=== PATIENT | male | born 1970 | race Caucasian/White ===

== ENCOUNTER 2025-07-01 14:56 | Inpatient (IN) | payer SELFPAY ==
[2025-07-01] VITALS (42 sets, daily range): BP systolic 85–125; BP diastolic 52–89; PULSE 108–149; RESP 16–33; TEMP 36.7; O2SAT 83–100; BMI 21.3
--- NOTE | 2025-07-01 14:57 | XR_ITS ---
WS: [id number] XR chest 1V portable [id number] REASON FOR EXAM: Chest pain FINDINGS: Mild tortuosity of the aortic arch and thoracic aorta. Normal heart size. Calcified granulomatous disease with calcified lymph nodes in both hilar regions. There are chronic appearing interstitial opacities in both lower lung johnson. There is paraseptal emphysema in both lung apices. Probable central lobar emphysema in the remainder of the lungs. Mild flattening of the hemidiaphragms. No definite acute pulmonary parenchymal or pleural abnormality. Mild to moderate degenerative spondylosis in the mid and lower thoracic spine. XR/XR chest 1V portable [id number] IMPRESSION: Obstructive lung disease/emphysema. No definite acute chest abnormality.
--- NOTE | 2025-07-01 14:57 | ECG_ITS ---
[employer] Test Date: 2025-07-01 Pat Name: All Rae Department: Room: Gender: Male Icu Specialist: : 1970 Requested By: Liz Roberts Order Number: [id number] Christensen MD: Mahamed Beltran M.D. Measurements Intervals [place] Rate: 110 P: 0 MI: 0 QRS: 61 QRSD: 98 T: 244 QT: 355 QTc: 482 Interpretive Statements ATRIAL FIBRILLATION WITH RAPID VENTRICULAR RESPONSE INDETERMINATE AXIS INCOMPLETE RIGHT BUNDLE BRANCH BLOCK [90+ ms QRS DURATION, TERMINAL R IN V1/V2, 40+ ms S IN I/aVL/V4/V5/V6] ST DEVIATION AND MODERATE T-WAVE ABNORMALITY, CONSIDER LATERAL ISCHEMIA [-0.1+ mV T-WAVE IN I/aVL/V5/V6] ST DEVIATION AND MODERATE T-WAVE ABNORMALITY, CONSIDER INFERIOR ISCHEMIA [-0.1+ mV T-WAVE IN II/aVF] No previous ECG available for comparison Electronically Signed On 07-02-2025 16:54:03 CDT by Mahamed Beltran M.D. [id number]
[2025-07-01 15:15] LABS: Hematocrit 41.2 % (37-53); Hemoglobin 14.30 g/dL (11.27-16.99); Mean Corpuscular HGB Conc 34.7 g/dL (30-55); Mean Corpuscular Hemoglobin 30.2 pg (27-33); Mean Corpuscular Volume 87.1 fl (82-101); Nucleated Red Blood Cells % 0 %; Platelet Count 253 10^3/cmm (157-399); Red Blood Count 4.73 10^6/uL (3.85-5.65); White Blood Count 13.12 10^3/uL (3.29-11.43)
[2025-07-01 15:34] LABS: Lactic Sepsis W/Reflex 3.3 mmol/L (0.5-2.2)
[2025-07-01 15:38] LABS: Troponin(5th) Baseline 54 ng/L (0-15)
[2025-07-01] MEDS: amiodarone 150 MG/100 ML PREMIX 400 MG IV (15:40)
[2025-07-01 15:45] LABS: Alanine Aminotransferase 43 U/L (0-41); Albumin Level 3.9 g/dL (3.5-5.2); Alkaline Phosphatase 114 U/L (40-130); Anion Gap 20.7 (5-19); Aspartate Amino Transferase 46 U/L (0-40); Blood Urea Nitrogen 39 mg/dL (6-20); Calcium 8.9 mg/dL (8.5-10.5); Carbon Dioxide 25 mmol/L (22-29); Chloride 97 mmol/L (98-107); Creatinine Clr Calc Pharmacy 65.4106; Globulin 3.4 g/dL (1.3-4.6); Glucose 138 mg/dL (65-115); Magnesium 2.0 mg/dL (1.7-2.3); Osmolality Calculated 296 mOsm/kg (285-295); Potassium 5.7 mmol/L (3.5-5.1); Sodium 137 mmol/L (136-145); Thyroid Stimulating Hormone 2.65 uIU/mL (0.27-4.20); Total Protein 7.3 g/dL (6.6-8.7)
--- NOTE | 2025-07-01 16:05 | PC.PHAR ---
Pt states he takes no prescription medications but has a short list of supplements along with asa 81mg and mucinex
[2025-07-01 16:07] LABS: NT Pro B Type Natriuretic Pept 37206 pg/mL (0-125)
--- NOTE | 2025-07-01 16:11 | W.ED.CHESTPA ---
HPI - Chest Pain General: Chief Complaint: Chest Pain Stated Complaint: Afib RVR Chest Pain, SOB Time Seen by Provider: 07/01/25 14:56 History of Present Illness: 55-year-old male with a history of tobacco dependence and no known medical problems who presents to the emergency room by ambulance from clinic with tachycardia. He says he has not been to see a doctor in over 35 years. He gone in because he been feeling weak and tired. He been having some substernal chest discomfort. He felt short of breath. Upon arrival at clinic he was found to be in A-fib with RVR with a rate in the 170s to 180s. He was given multiple doses of Cardizem on the way to the emergency room and heart rate was down into the 140s. However pressure has been a bit soft. No known fevers. No abdominal pain. No flank pain. No nausea or vomiting. Related Data Home Medications ?Medication ?Instructions ?Recorded ?Confirmed aspirin 81 mg tablet,delayed 81 mg PO DAILY 07/01/25 07/01/25 release cyanocobalamin (vitamin B-12) 1,000 mcg PO DAILY 07/01/25 07/01/25 1,000 mcg tablet (Vitamin B-12) elderberry fruit 350 mg capsule 350 mg PO DAILY 07/01/25 07/01/25 guaifenesin 600 mg tablet, 600 mg PO DAILY 07/01/25 07/01/25 extended release 12 hr (Mucinex) magnesium 250 mg tablet 250 mg PO DAILY 07/01/25 07/01/25 multivitamin 1 tab PO DAILY 07/01/25 07/01/25 sour ag extract 1,000 mg 1,000 mg PO DAILY 07/01/25 07/01/25 capsule (Tart Ag Extract) turmeric root extract 500 mg 500 mg PO DAILY 07/01/25 07/01/25 capsule Allergies Allergy/AdvReac Type Severity Reaction Status Date / Time Penicillins Allergy ALGY-Hives Verified 07/01/25 15:11 Review of Systems Narrative: Constitutional symptoms: Negative except as documented in HPI. Skin symptoms: Negative except as documented in HPI. Eye symptoms: Negative except as documented in HPI. ENMT symptoms: Negative except as documented in HPI. Respiratory symptoms: Negative except as documented in HPI. Cardiovascular symptoms: Negative except as documented in HPI. Gastrointestinal symptoms: Negative except as documented in HPI. Genitourinary symptoms: Negative except as documented in HPI. Musculoskeletal symptoms: Negative except as documented in HPI. Neurologic symptoms: Negative except as documented in HPI. Psychiatric symptoms: Negative except as documented in HPI. Endocrine symptoms: Negative except as documented in HPI. PFSH ED PFSH: Surgical History (Updated 07/01/25 @ 17:36 by Dar Lynne MD) No pertinent past surgical history Social History (Updated 07/01/25 @ 17:36 by Dar Lynne MD) Smoking and tobacco/nicotine status: current every day tobacco/nicotine user Alcohol intake: never Substance/Drug Use: never Physical Exam Narrative: EXAM NARRATIVE: General: Alert, no acute distress. Skin: Warm, dry. Head: Normocephalic, atraumatic. Neck: Supple, trachea midline. Eye: Extraocular movements are intact. Ears, nose, mouth and throat: mucosa moist. Cardiovascular: Tachycardic, Normal peripheral perfusion. Respiratory: Lungs are clear to auscultation, respirations are non-labored, breath sounds are equal, Symmetrical chest wall expansion. Gastrointestinal: Soft, Nontender, Non distended Musculoskeletal: Normal ROM, no deformity. Neurological: Alert and oriented, No focal neurological deficit observed. Psychiatric: Cooperative, appropriate mood & affect. Course Vital Signs: Vital signs: Vital Signs Temperature 98.1 F 07/01/25 14:57 Pulse Rate 108 H 07/01/25 14:57 Respiratory Rate 16 07/01/25 14:57 Blood Pressure 98/64 07/01/25 14:57 Pulse Oximetry 92 07/01/25 14:57 Oxygen Delivery Me thod Room Air 07/01/25 14:57 MDM - Chest Pain Medical Decision Making Differential diagnosis for patient with chest pain includes but is not limited to and based on the above HPI, review of systems and physical exam: Pneumonia. unstable angina. angina. Acute coronary syndrome / AR. Pulmonary embolism. Costochondritis / musculoskeletal. Pleurisy. Pericarditis. Esophageal spasm. Pancreatis. Cholecystitis. Orders placed to evaluate differential diagnosis based on the above differential, HPI and physical exam EKG: Time 1455. Rate 110. Atrial fibrillation with rapid ventricular response, nonspecific ST changes, no ectopy, This was reviewed and interpreted by myself the ER physician at 1458 Repeat EKG: Time 1818. Rate 121. Atrial fibrillation with rapid ventricular response, nonspecific ST changes. No ectopy, This was reviewed and interpreted by myself the ER physician at 1622. Rate has increased some Chest x-ray: Emphysematous changes but no acute process. No infiltrate. No pneumothorax. This was reviewed and interpreted by myself the emergency room physician. I also reviewed the radiology report. Lab Review: Laboratory results were reviewed and interpreted by myself the emergency room physician. Mild leukocytosis. No anemia. Renal failure with a BUN/creatinine of 39 and 1.4. Potassium is mildly elevated at 5.7. Troponin is mildly elevated but does not change on repeat. proBNP is very elevated at 37,000. TSH is normal. Lactic acid is mildly elevated at 3.3. I reviewed the patient's medical record. No previous records. Reexamination: Patient became fairly diaphoretic at 1 point I repeated an EKG that showed no changes. His cardiac markers have remained normal. He is not requiring any oxygen. His heart rate has come down quite a bit but has bounced back up into the 130s at times. Blood pressure has been soft. Consultation: I spoke with Dr. Stauffer and then with Astrid Larsen. Dr. Stauffer recommends heparin drip and a stat echo which was done. I talked with Astrid and her and Dr. Rivas will see the patient in consult. Consultation: I spoke with Dr. Lynne who is on-call for the hospital service who agrees to admission. Assessment and plan: Atrial fibrillation with rapid ventricular response Cardiogenic shock Hyperkalemia Acute renal insufficiency ?Amiodarone and amiodarone drip -I discussed the patient with the hospitalist on-call who is admitting the patient. - Discussed findings and plan with patient. Answered any questions. - All laboratory values were reviewed and interpreted personally by myself, the ER physician - All imaging was reviewed and interpreted personally by myself, the ER physician. - Evaluation and treatment of this problem were appropriate in the emergency setting Critical Care: -I spent a total of 37 minutes of critical care time managing the patient, independent of any other practitioner. -The time involved in the performance of separately reportable procedures was not counted towards critical care time. Lab Data 07/01/25 15:04 07/01/25 15:04 Radiology Impressions Chest X-Ray 07/01/25 14:57 IMPRESSION: Obstructive lung disease/emphysema. No definite acute chest abnormality. Laboratory Results WBC 13.12 10^3/uL (3.29-11.43) H 07/01/25 15:04 RBC 4.73 10^6/uL (3.85-5.65) 07/01/25 15:04 Hgb 14.30 g/dL (11.27-16.99) 07/01/25 15:04 Hct 41.2 % (37-53) 07/01/25 15:04 MCV 87.1 fl (82-101) 07/01/25 15:04 MCH 30.2 pg (27-33) 07/01/25 15:04 MCHC 34.7 g/dL (30-55) 07/01/25 15:04 RDW 13.4 % (12.1-15.1) 07/01/25 15:04 Plt Count 253 10^3/cmm (157-399) 07/01/25 15:04 MPV 9.9 fL (7.4-10.4) 07/01/25 15:04 Neut % (Auto) 76.8 % 07/01/25 15:04 Lymph % (Auto) 14.0 % 07/01/25 15:04 [place] % (Auto) 8.6 % 07/01/25 15:04 Eos % (Auto) 0.0 % 07/01/25 15:04 Baso % (Auto) 0.2 % 07/01/25 15:04 Neut # (Auto) 10.07 10^3/uL (1.8-7.7) H 07/01/25 15:04 Lymph # (Auto) 1.8 10^3/uL (0.8-4.8) 07/01/25 15:04 [place] # (Auto) 1.1 10^3/uL (0.2-0.9) H 07/01/25 15:04 Eos # (Auto) 0.0 10^3/uL (0.0-0.8) 07/01/25 15:04 Baso # (Auto) 0.0 10^3/uL (0.0-0.1) 07/01/25 15:04 Nucleated RBC % (auto) 0 % 07/01/25 15:04 Nucleated RBCs # 0.0 /100WBC 07/01/25 15:04 Sodium 137 mmol/L (136-145) 07/01/25 15:04 Potassium 5.7 mmol/L (3.5-5.1) H 07/01/25 15:04 Chloride 97 mmol/L (98-107) L 07/01/25 15:04 Carbon Dioxide 25 mmol/L (22-29) 07/01/25 15:04 Anion Gap 20.7 (5-19) H 07/01/25 15:04 BUN 39 mg/dL (6-20) H 07/01/25 15:04 Creatinine 1.4 mg/dL (0.7-1.2) H 07/01/25 15:04 GFR Calculation 52.2 mL/min (90-130) L 07/01/25 15:04 Glucose 138 mg/dL (65-115) H 07/01/25 15:04 Calculated Osmolality 296 mOsm/kg (285-295) H 07/01/25 15:04 Lactic Acid 3.3 mmol/L (0.5-2.2) H 07/01/25 15:04 Calcium 8.9 mg/dL (8.5-10.5) 07/01/25 15:04 Magnesium 2.0 mg/dL (1.7-2.3) 07/01/25 15:04 Total Bilirubin 1.5 mg/dL (0.15-1.2) H 07/01/25 15:04 AST 46 U/L (0-40) H 07/01/25 15:04 ALT 43 U/L (0-41) H 07/01/25 15:04 Alkaline Phosphatase 114 U/L (40-130) 07/01/25 15:04 Troponin T Baseline 54 ng/L (0-15) H 07/01/25 15:04 Troponin T 120 Minute 54.61 ng/L (0-15) H 07/01/25 16:46 Delta Troponin T 0.61 ABS# (0-10) 07/01/25 16:46 NT-Pro-B Natriuret Pep 90518 pg/mL (0-125) H 07/01/25 15:04 Total Protein 7.3 g/dL (6.6-8.7) 07/01/25 15:04 Albumin 3.9 g/dL (3.5-5.2) 07/01/25 15:04 Globulin 3.4 g/dL (1.3-4.6) 07/01/25 15:04 TSH 2.65 uIU/mL (0.27-4.20) 07/01/25 15:04 XR interpretation done by ED provider, pending radiology final review Discharge Plan Discharge Patient Disposition: Admitted As Inpatient Clinical Impression: Atrial fibrillation with rapid ventricular response, Acute systolic CHF (congestive heart failure), Cardiogenic shock, Acute kidney injury, Hyperkalemia, Lactic acidosis Condition: Stable Coding Level of Care Code ED Notcher for Chg Fwd Heart Score HEART Score Components History: Moderately Suspicious EKG: Non-specific Changes Age: 45-64 yrs Risk Factors: No Risk Factors Known Troponin: Baseline Trop >45 ng/L HEART Score RESULT HEART Score: 5
[2025-07-01] MEDS: AMIODARONE HCL/D5W 900 MG/500 ML BAG 33.33 MG IV (16:17)
--- NOTE | 2025-07-01 16:27 | USCV_ITS ---
All Rae Age: 55 Gender: M : 1970 Exam Date: 07/01/2025 16:42 Ordering Phys: Liz Parisi MD Technologist: QUIRINO Exam Location: [facility] [place] Indication: New onset HF. Afib BP: / HR: Rhythm: Sinus Technical Quality: Adequate MEASUREMENTS (Male / Female) Normal Values 2D ECHO LV Diastolic Diameter PLAX 5.9 cm 4.2 - 5.9 / 3.9 - 5.3 cm IVS Diastolic Thickness 1.2 cm 0.6 - 1.0 / 0.6 - 0.9 cm IVS Systolic Thickness 1.4 cm LVPW Diastolic Thickness 1.2 cm 0.6 - 1.0 / 0.6 - 0.9 cm LVPW Systolic Thickness 2.3 cm LVOT Diameter 2.1 cm LV Ejection Fraction 2D Teich 32.6 % LV Ejection Fraction MOD 4C 36.8 % LV Ejection Fraction MOD 2C 30.9 % LV Ejection Fraction 2C AL 34.7 % LA Diameter 4.0 cm RA Systolic Volume 4C AL 71.5 ml RA Systolic Volume 4C MOD 69.1 ml Aorta at Sinotubular Diameter 2.7 cm IVC Diameter 2.7 cm M-MODE LA Ao Ratio MM 1.6 AV Cusp Separation MM 0.9 cm FINDINGS Left Ventricle Normal left ventricular size. Moderately decreased left ventricular systolic function. Global hypokinesis. Left ventricular ejection fraction is 32%. Mild left ventricular hypertrophy. Rhythm precludes evaluation of diastolic function. Mild left ventricular hypertrophy. Right Ventricle Right ventricle not well visualized. Upper limits of normal RV cavity size. Mildly reduced right ventricular systolic function. Right Atrium Normal right atrial size. Left Atrium Mildly increased left atrial size. IA Septum Normal appearance of the interatrial septum. Mitral Valve Aortic Valve Tricuspid Valve Pulmonic Valve Pericardium No pericardial effusion. Aorta IVC CONCLUSIONS 1. Normal LV cavity size. Moderate global hypokinesis of the left ventricle with EF of 32% 2. Right ventricle not well visualized. Upper limits of normal RV cavity size. Mildly reduced right ventricular systolic function. 3. This echocardiogram was ordered as a limited study. Ventricular function assessment is limited due to atrial fibrillation with rapid ventricular response. Heart rate was 132 bpm at time of test. Georges Rivas MD, FACC (Electronically Signed) Final Date: 01 July 2025 19:17 S
--- NOTE | 2025-07-01 16:57 | ECG_ITS ---
[employer] Test Date: 2025-07-01 Pat Name: All Rae Department: Room: Gender: Male Instructional Coach: : 1970 Requested By: Liz Roberts Order Number: [id number] Christensen MD: Ellis Krishna M.D. Measurements Intervals [place] Rate: 121 P: 0 NC: 0 QRS: -19 QRSD: 92 T: 181 QT: 327 QTc: 465 Interpretive Statements ATRIAL FIBRILLATION WITH RAPID VENTRICULAR RESPONSE INDETERMINATE AXIS MINIMAL VOLTAGE CRITERIA FOR LVH, CONSIDER NORMAL VARIANT [MEETS CRITERIA IN ONE OF: R(aVL), S(V1), R(V5), R(V5/V6)+S(V1)] ST DEVIATION AND MODERATE T-WAVE ABNORMALITY, CONSIDER LATERAL ISCHEMIA [-0.1+ mV T-WAVE IN I/aVL/V5/V6] Compared to ECG 07/01/2025 14:55:42 Incomplete right bundle-branch block no longer present T-wave abnormality still present Possible ischemia still present Electronically Signed On 07-09-2025 23:03:18 CDT by Ellis Krishna M.D. [id number]
[2025-07-01 16:59] LABS: Reflex Lactate Order REFLEX LACTIC ORDERD
[2025-07-01 17:15] LABS: Troponin 5 2HR 54.61 ng/L (0-15); Troponin 5 2HR Delta 0.61 ABS# (0-10)
[2025-07-01] MEDS: heparin drip 25,000 UNIT/500 ML PREMIX 21 UNIT IV (17:19)
[2025-07-01] MEDS: heparin 5,000 unit/mL INJ 1 mL IVP (17:21)
--- NOTE | 2025-07-01 17:33 | PM.HP ---
Providers/Chief Complaint Chief Complaint: Afib RVR Chest Pain, SOB History of Present Illness All Rae is a 55 year old male with no known past medical history, current smoker, who presents [facility] due to chest pain and shortness of breath. Currently patient is sitting up in bed, tells me that he cannot lie flat because of feeling short of breath, chest discomfort and chest palpitations. Patient tells me for the last few days he has not been feeling well, has had weakness, fatigue, short of breath with exertion, progressing to shortness of breath at rest, with chest palpitations, he is also complains of night sweats, no weight loss, does have a cough, no hemoptysis, no calf pain or calf swelling, no headache, no blurry vision, he did travel to [place] recently and then to [place], no known sick contacts, Review of Systems Const: Reports: chills, fatigue and malaise Card: Reports: chest pain Resp: Reports: dyspnea GI: Denies: abdominal pain : Denies: flank pain Medications/Allergies Home Medications ?Medication ?Instructions ?Recorded ?Confirmed ?Last Taken ?Type aspirin 81 mg tablet,delayed 81 mg PO DAILY 07/01/25 07/01/25 07/01/25 History release cyanocobalamin (vitamin B-12) 1,000 mcg PO DAILY 07/01/25 07/01/25 07/01/25 History 1,000 mcg tablet (Vitamin B-12) elderberry fruit 350 mg capsule 350 mg PO DAILY 07/01/25 07/01/25 07/01/25 History guaifenesin 600 mg tablet, 600 mg PO DAILY 07/01/25 07/01/25 07/01/25 History extended release 12 hr (Mucinex) magnesium 250 mg tablet 250 mg PO DAILY 07/01/25 07/01/25 07/01/25 History multivitamin 1 tab PO DAILY 07/01/25 07/01/25 07/01/25 History sour ag extract 1,000 mg 1,000 mg PO DAILY 07/01/25 07/01/25 07/01/25 History capsule (Tart Ag Extract) turmeric root extract 500 mg 500 mg PO DAILY 07/01/25 07/01/25 07/01/25 History capsule Allergies Allergy/AdvReac Type Severity Reaction Status Date / Time Penicillins Allergy ALGY-Hives Verified 07/01/25 15:11 PFSH Acute PFSH: Surgical History (Updated 07/01/25 @ 17:36 by Dar Lynne MD) No pertinent past surgical history Social History (Updated 07/01/25 @ 17:36 by Dar Lynne MD) Smoking and tobacco/nicotine status: current every day tobacco/nicotine user Alcohol intake: never Substance/Drug Use: never Vitals/I&O/Wt Last Vital Signs Temp 98.1 F 07/01/25 14:57 Pulse 108 H 07/01/25 14:57 Resp 16 07/01/25 14:57 BP 98/64 07/01/25 14:57 Pulse Ox 92 07/01/25 14:57 O2 Del Method Room Air 07/01/25 14:57 Weight last 48 hrs Weight 75.296 kg Physical Exam Const: COMMON NORMALS: no acute distress and patient oriented x3 HENMT: COMMON NORMALS: normocephalic HEAD & SCALP: normocephalic Eye: COMMON NORMALS: Equal, round and reactive pupils present Neck/C-Spine: OTHER: Right-sided JVD present Resp: OTHER: Tachypnea, crackles in all lung johnson, no nasal flaring, no intercostal retractions, suprasternal retractions Cardio: COMMON NORMALS: regular rate, regular rhythm, S1 normal heart sound present and S2 normal heart sound present RATE: tachycardic RHYTHM: abnormal rhythm HEART SOUNDS: S1 normal heart sound present and S2 normal heart sound present GI: COMMON NORMALS: Normal to inspection, nondistended, normoactive bowel sounds present, Soft to palpation and non-tender Extremity: COMMON NORMALS: no calf tenderness and no pedal edema Neuro: COMMON NORMALS: patient oriented x3, CN's II-XII intact bilaterally and moves all extremities Psych: COMMON NORMALS: mental status grossly normal Data 07/01/25 15:04 07/01/25 15:04 A&P Assessment and plan 1. Acute systolic CHF (congestive heart failure): 2. Cardiogenic shock: 3. Acute kidney injury: 4. Hyperkalemia: 5. Transaminitis: 6. Lactic acidosis: 7. Shock: 8. Atrial fibrillation with rapid ventricular response: Plan: Atrial fibrillation with rapid ventricular response - Currently on amiodarone drip - Currently on heparin drip Acute systolic heart failure - Appears fluid overloaded with elevated BNP, JVD, crackles on examination Plan - Lasix 40 IV twice daily - With albumin therapy - Cardiology consulted Shock - Could be a component of A-fib with RVR - Could be a component of cardiogenic shock with acute systolic CHF - Will monitor in ICU, - Levophed to maintain MAP greater than 65 Sepsis? -With hypotension concern for septic shock? - Does have leukocytosis - Source is unclear - UA pending -Blood cultures ordered - CT angiogram of the chest ordered given recent travel, elevated troponins, elevated BNP, shortness of breath - Ultrasound liver and gallbladder ordered - For now we will give him a dose of vancomycin, meropenem until further workup is completed Transaminitis - With hyperbilirubinemia - Liver ultrasound - Acute hep panel - Lipase, GGT, HIV - Could be from congestive hepatopathy from acute heart failure Lactic acidosis - Will avoid fluid therapy given acute CHF - Levophed to maintain MAP at 65 Hyperkalemia - Insulin, D50, telemeter monitoring, calcium gluconate - Repeat BMP NSTEMI - With complaints of chest pain - Serial EKGs, serial troponins, telemetry monitoring - Aspirin, statin - Cardiac echo - Heparin drip ANGELO - Monitor urine output, monitor creatinine - Ultrasound abdomen including kidneys Full code Heparin drip for DVT prophylaxis PDMP PDMP Reviewed: Not Reviewed Attestations Medical Necessity Statement*: Patient requires hospitalization, inpatient, greater than 2 midnights, for acute heart failure, cardiogenic shock, atrial fibrillation with rapid ventricular response, transaminitis, ANGELO Coding Level of Care Code Critical Care >/= 30 minutes Critical care time (in minutes): 45 The high probability of a clinically significant, sudden or life threatening deterioration, as referenced in this documentation, required my full and direct attention, intervention and personal management. The critical care time shown is in addition to time spent performing any reported separately billable procedures and includes the following: [x] Data and vital sign review and interpretation [x] Patient assessment, examination and intervention [x] Medication orders and management [x] Patient/Family updates as able [x] Care Coordination and Documentation. Diagnoses Acute systolic CHF (congestive heart failure) I50.21 Cardiogenic shock R57.0 Acute kidney injury N17.9 Hyperkalemia E87.5 Transaminitis R74.01 Lactic acidosis E87.20 Shock R57.9 Atrial fibrillation with rapid ventricular response I48.91 Sepsis Event Note Evaluation Initial hypotension due to sepsis/infection: SBP < 90 mmHg Persistent hypotension due to sepsis/infection: SBP < 90 mmHg Focused Exam Vital Signs Temp Pulse Resp BP Pulse Ox O2 Del Method 07/01/25 14:57 98.1 F 108 H 16 98/64 92 Room Air Cardiovascular exam: Present tachycardia Capillary refill: < 3 Seconds Peripheral pulse strength: 2+ Slightly Diminished Peripheral pulse location: Pedal Skin exam: normal turgor Date exam was performed: 07/01/25 Time exam was performed: 17:38 Problem List 1. Acute systolic CHF (congestive heart failure): Status: Acute 2. Cardiogenic shock: Status: Acute 3. Acute kidney injury: Status: Acute 4. Hyperkalemia: Status: Acute 5. Transaminitis: Status: Acute 6. Lactic acidosis: Status: Acute 7. Shock: Status: Acute 8. Atrial fibrillation with rapid ventricular response: Status: Acute
--- NOTE | 2025-07-01 17:35 | CTR_ITS ---
PROCEDURE INFORMATION: Exam: CTA Chest With Contrast Exam date and time: 07/01/2025 8:14 PM Age: 55 years old Clinical indication: Pain; Angina pectoris; Additional info: Chest pain, SOB TECHNIQUE: Imaging protocol: Computed tomographic angiography of the chest with contrast. Exam focused on the arteries. 3D rendering (Not supervised by radiologist): MIP and/or 3D reconstructed images were created by the technologist. Radiation optimization: All CT scans at this facility use at least one of these dose optimization techniques: automated exposure control; mA and/or kV adjustment per patient size (includes targeted exams where dose is matched to clinical indication); or iterative reconstruction. Contrast material: OMNI 350; Contrast volume: 100 ml; Contrast route: INTRAVENOUS (IV); COMPARISON: CR XR chest 1V portable [id number] 07/01/2025 3:11 PM RADIATION DOSE METRICS: Total DLP (mGy-cm): 423.92 FINDINGS: Pulmonary arteries: There is no acute or chronic pulmonary embolism Aorta: Unremarkable. No aortic aneurysm. No aortic dissection. Lungs: There are findings of paraseptal and centrilobular loss lucency upper lung zones compatible with emphysematous lung changes. There are findings of interstitial pulmonary edema with moderate free layering bilateral pleural effusions present. Pleural spaces: See Lungs finding. Heart: There is dense coarse calcification along the aortic valve for evaluation recommended to exclude aortic valve stenosis. Lymph nodes: Unremarkable. No enlarged lymph nodes. Spleen: Calcified granulomas present in the spleen. Bones/joints: Unremarkable. No acute fracture. Soft tissues: Unremarkable. Other findings: There is no aneurysm. CT/CT angio chest PE protcl [id number] IMPRESSION: Findings of pulmonary interstitial edema with bilateral moderate-sized pleural effusions. Changes in accordance with advanced emphysema upper lobe predominant. Dense coarse calcification on the aortic valve correlate to exclude aortic valve stenosis. No acute or chronic pulmonary embolism. No aneurysm. COMMENTS: The presence of pulmonary emphysema on CT is an independent risk factor for lung cancer. In the absence of a history or active diagnosis of lung cancer, it is recommended that this patient with emphysema be evaluated for enrollment in a low dose CT lung cancer screening program.
--- NOTE | 2025-07-01 17:44 | USR_ITS ---
PROCEDURE INFORMATION: Exam: US Abdomen Complete Exam date and time: 07/01/2025 6:37 PM Age: 55 years old Clinical indication: Other: Elevated lfts, ; additional info: Liver and gallbladder TECHNIQUE: Imaging protocol: Real-time ultrasound of the abdomen with image documentation. Complete exam. COMPARISON: No relevant prior studies available. FINDINGS: Liver: Normal. No mass. Gallbladder: Markedly thickened gallbladder wall measuring 1.2 cm. Biliary sludge. Positive sonographic Goff's sign. Biliary ducts: Normal. No stones. No dilation. Pancreas: Visualized pancreas is unremarkable. Right kidney: No right-sided hydronephrosis. The right kidney is normal. Left kidney: Left kidney simple cysts. No left-sided hydronephrosis. Spleen: There is some atrophy of the spleen with some calcifications. Aorta: Normal. No aneurysm. Inferior vena cava: Normal. Other findings: There is a 3 mm sessile polyp. US/US abdomen complete* [id number] IMPRESSION: 1. Findings above concerning for acute cholecystitis with biliary sludge. There is also a 3 mm sessile can be followed up in 6 months' time if the gallbladder is not decided by the surgical team to be taken up. 2. Otherwise unremarkable abdominal ultrasound.
[2025-07-01 17:59] LABS: Lactic Acid level (Lactate) 3.4 mmol/L (0.5-2.2)
[2025-07-01 18:47] LABS: Lipase 23 U/L (13-60)
[2025-07-01 18:50] LABS: INR 1.00 (0.8-1.2); Prothrombin Time 14.00 SECONDS (12.1-14.9)
[2025-07-01 18:51] LABS: Partial Thromboplastin Time 26.3 SECONDS (23.9-36.7)
[2025-07-01 18:52] LABS: Procalcitonin 0.12 ng/mL (0-0.5)
[2025-07-01 19:11] LABS: HIV 1 & 2 Antigen Non-Reactive (Non-Reactiv)
--- NOTE | 2025-07-01 19:33 | PM.CONSULT ---
Providers/Reason For Consult Consulting Physician/Specialty*: Georges Rivas MD Reason for Consult*: Atrial fibrillation with rapid ventricular response Requesting Physician: Dar Lynne MD Attending Physician: Dar Lynne MD History of Present Illness History of Present Illness All Rae is a 55 year old male smoker who has not had any regular medical care. Over the last 3 days the patient has felt ill, with shortness of breath, chest discomfort, palpitations, cough and diaphoresis. The patient went to the [facility] walk in clinic who did an EKG that showed atrial fibrillation with HR in the 180s. Patient received IV Diltiazem en route with reduction in HR into the 140s but BP dropped. In the ER, IV amiodarone started but HR remains 135 bpm. Trop mildly elevated at 54, NTpro BNP > 30K. Lactic acid 3. procalcitonin normal. TSH normal Medications/Allergies Home Medications ?Medication ?Instructions ?Recorded ?Confirmed ?Last Taken ?Type aspirin 81 mg tablet,delayed 81 mg PO DAILY 07/01/25 07/01/25 07/01/25 History release cyanocobalamin (vitamin B-12) 1,000 mcg PO DAILY 07/01/25 07/01/25 07/01/25 History 1,000 mcg tablet (Vitamin B-12) elderberry fruit 350 mg capsule 350 mg PO DAILY 07/01/25 07/01/25 07/01/25 History guaifenesin 600 mg tablet, 600 mg PO DAILY 07/01/25 07/01/25 07/01/25 History extended release 12 hr (Mucinex) magnesium 250 mg tablet 250 mg PO DAILY 07/01/25 07/01/25 07/01/25 History multivitamin 1 tab PO DAILY 07/01/25 07/01/25 07/01/25 History sour ag extract 1,000 mg 1,000 mg PO DAILY 07/01/25 07/01/25 07/01/25 History capsule (Tart Ag Extract) turmeric root extract 500 mg 500 mg PO DAILY 07/01/25 07/01/25 07/01/25 History capsule Allergies Allergy/AdvReac Type Severity Reaction Status Date / Time Penicillins Allergy ALGY-Hives Verified 07/01/25 15:11 Current Medications Generic Name Dose Route Start Last Admin Trade Name Freq PRN Reason Stop Dose Admin AMIODARONE HCL/D5W 900 mg in 500 mls @ 0 mls/hr 07/01/25 15:23 07/01/25 16:17 Amiodarone 900 Mg/500 Ml-D5w IV 1 mg/min .Q0M JAY 33.33 mls/hr Protocol Administration Per Protocol Heparin Sodium/Sodium Chloride 25,000 unit in 500 mls @ 0 mls/hr 07/01/25 16:30 07/01/25 17:19 Heparin Drip IV 13.94 unit/kg/hr CONT JAY 21 mls/hr Protocol Administration Per Protocol PFSH Acute PFSH: Surgical History (Updated 07/01/25 @ 17:36 by Dar Lynne MD) No pertinent past surgical history Social History (Updated 07/01/25 @ 17:36 by Dar Lynne MD) Smoking and tobacco/nicotine status: current every day tobacco/nicotine user Alcohol intake: never Substance/Drug Use: never Vitals/I&O/Wt Last Vital Signs Temp 98.1 F 07/01/25 14:57 Pulse 131 H 07/01/25 19:00 Resp 16 07/01/25 14:57 BP 104/76 07/01/25 19:00 Pulse Ox 97 07/01/25 19:00 O2 Del Method Room Air 07/01/25 19:00 Weight last 48 hrs Weight 166 lb Data 07/01/25 15:04 07/01/25 15:04 Micro: Microbiology 07/01/25 15:04 Blood Culture - Preliminary Blood SPECIMEN COLLECTED Other data: EKG 07/01/25: Afib with RVR, LVH with repolarization abnormality versus ischemia A&P Assessment and plan 1. Atrial fibrillation with rapid ventricular response: - Date of onset unknown - hypotension with IV dilt - Still with significant RVR despite IV amio - give another bolus of amio 150m IV x1 and give Dig 0.25mg IV x1 - May need DCCV urgently 2. Acute systolic CHF (congestive heart failure): - EF 32% in setting of afib with HR 135 -possibly tachycardia induced cardiomyopathy - Ischemic cardiomyopathy also possible - no edema on exam or CXR -NT pro bnp can be elevated due to the afib by itself - caution with IV lasix in setting of elevated Cr and hypotension - agree with lasix 40mg IV x 1 and then redose if needed based on response 3. Lactic acidosis: 4. Hypotension: - due to RVR plus reduced LV systolic function - in case of sepsis, receiving IV abx 5. NSTEMI (non-ST elevated myocardial infarction): - Unclear if due to demand only versus ACS - IV heparin - get HR controlled - continue asa 81mg daily -will need ischemic workup once rhythm and rate more stable PDMP PDMP Reviewed: Not Reviewed Coding Level of Care Code 15464 Diagnoses Atrial fibrillation with rapid ventricular response I48.91 Acute systolic CHF (congestive heart failure) I50.21 Lactic acidosis E87.20 Hypotension I95.9 NSTEMI (non-ST elevated myocardial infarction) I21.4
[2025-07-01] MEDS: digoxin 250 mcg/ml INJ 2 mL IVP (19:43)
[2025-07-01] MEDS: insulin regular-human 100 units/1 mL 10 UNIT IVP (19:44)
[2025-07-01] MEDS: calcium gluconate 0.9% NaCL 1 GM/50 ML PREMIX IV (19:48)
[2025-07-01] MEDS: iohexol 350 mg/mL 500 mL Btl (per mL) IV (20:32)
--- NOTE | 2025-07-01 20:57 | ECG_ITS ---
[email or web address] Test Date: 2025-07-01 Pat Name: All Rae Department: Room: ICU09 Gender: Male Projection Technician: : 1970 Requested By: Liz Roberts Order Number: [id number] Fermin MD: Ellis Krishna M.D. Measurements Intervals [place] Rate: 126 P: 0 SC: 0 QRS: 261 QRSD: 83 T: 0 QT: 303 QTc: 439 Interpretive Statements ATRIAL FLUTTER/TACHYCARDIA WITH RAPID VENTRICULAR RESPONSE INDETERMINATE AXIS S1-S2-S3 PATTERN, CONSISTENT WITH PULMONARY DISEASE, RVH, OR NORMAL VARIANT POSSIBLE RIGHT VENTRICULAR CONDUCTION DELAY [RSR (QR) IN V1/V2] ANTEROSEPTAL MYOCARDIAL INFARCTION , PROBABLY RECENT [40+ ms Q WAVE IN V1-V4] ACUTE DE Compared to ECG 07/01/2025 16:18:51 Right ventricular hypertrophy now present Myocardial infarct finding now present Atrial fibrillation no longer present T-wave abnormality no longer present Possible ischemia no longer present Electronically Signed On 07-08-2025 20:02:21 CDT by Ellis Krishna M.D. [email or web address]
[2025-07-01 21:22] LABS: Hepatitis A Antibody IgM Non-Reactive (Nonreactive); Hepatitis B Surface Antigen Non-Reactive (Nonreactive)
--- NOTE | 2025-07-01 21:28 | PHA.VACGOAL ---
Vancomycin Goal - Goal Vancomycin Goal:: 15-20 mg/L Vancomycin Indication:: Other (SEPSIS) - Therapy Day of therpy:: Day []of [] . Actual body weight (kg): 166 lb - Data Labs: WBC 13.12 10^3/uL (3.29-11.43) H 07/01/25 15:04 RBC 4.73 10^6/uL (3.85-5.65) 07/01/25 15:04 Hgb 14.30 g/dL (11.27-16.99) 07/01/25 15:04 Hct 41.2 % (37-53) 07/01/25 15:04 MCV 87.1 fl (82-101) 07/01/25 15:04 MCH 30.2 pg (27-33) 07/01/25 15:04 MCHC 34.7 g/dL (30-55) 07/01/25 15:04 RDW 13.4 % (12.1-15.1) 07/01/25 15:04 Sodium 137 mmol/L (136-145) 07/01/25 15:04 Potassium 5.7 mmol/L (3.5-5.1) H 07/01/25 15:04 Chloride 97 mmol/L (98-107) L 07/01/25 15:04 Carbon Dioxide 25 mmol/L (22-29) 07/01/25 15:04 Anion Gap 20.7 (5-19) H 07/01/25 15:04 BUN 39 mg/dL (6-20) H 07/01/25 15:04 Creatinine 1.4 mg/dL (0.7-1.2) H 07/01/25 15:04 GFR Calculation 52.2 mL/min (90-130) L 07/01/25 15:04 Last dialysis session:: N/A Regimen:: STARTED LOADING DOSE OF 2000 MG PER SEPSIS DIAGNOSIS. ORDERED MAINTENANCE DOSE OF 1000 MG Q12H. WILL CONTINUE TO MONITOR DAILY AND PLAN TO OBTAIN TROUGH PRIOR TO 4TH DOSE.
[2025-07-01 21:49] LABS: Cholesterol 187 mg/dL (0-200); HDL Cholesterol 28 mg/dL (60-100); Triglycerides 99 mg/dL (0-150)
[2025-07-01] MEDS: pantoprazole 40 mg SDV IVP (21:52)
[2025-07-01] MEDS: FUROsemide 10 mg/mL SDV 4mL 40 MG IVP (21:53)
[2025-07-01 21:59] LABS: Troponin 5 6HR 77.99 ng/L (0-15)
[2025-07-01 22:01] LABS: Estmated Average Glucose 108; Hemoglobin A1C 5.4 % (4.0-6.0)
[2025-07-01 22:04] LABS: Troponin 5 6HR Delta 23.99 ng/L (0-12)
[2025-07-01] MEDS: albumin 25 G/100 ML BAG 60 G IV (22:07)
[2025-07-01 23:01] LABS: Glucose Urine UA Negative (Normal); Nitrate Urine Positive (Negative)
[2025-07-01 23:06] LABS: Add Urine Microscopic? YES
[2025-07-01 23:21] LABS: Specific Gravity, Urine 1.061 (1.005-1.030)
[2025-07-02] VITALS (160 sets, daily range): BP systolic 49–115; BP diastolic 22–77; PULSE 75–123; RESP 12–32; TEMP 36.4–36.5; O2SAT 42–100
[2025-07-02 01:11] LABS: Partial Thromboplastin Time 44.7 SECONDS (23.9-36.7)
--- NOTE | 2025-07-02 01:20 | ECG_ITS ---
[facility] Test Date: 2025-07-02 Pat Name: All Rae Department: Room: ICU09 Gender: Male Advisory Intern: : 1970 Requested By: Sabina Bardales Order Number: [id number] Fermin MD: Mahamed Beltran M.D. Measurements Intervals [place] Rate: 77 P: 75 NE: 176 QRS: 254 QRSD: 99 T: 104 QT: 391 QTc: 443 Interpretive Statements SINUS RHYTHM POSSIBLE LEFT ATRIAL ENLARGEMENT [-0.1mV P-WAVE IN V1/V2] INDETERMINATE AXIS S1-S2-S3 PATTERN, CONSISTENT WITH PULMONARY DISEASE, RVH, OR NORMAL VARIANT NONSPECIFIC T-WAVE ABNORMALITY Compared to ECG 07/01/2025 19:50:47 T-wave abnormality now present Atrial flutter no longer present Myocardial infarct finding no longer present Electronically Signed On 07-02-2025 16:52:20 CDT by Mahamed Beltran M.D. [email or web address] [id number]
[2025-07-02] MEDS: norepinephrine 4 MG/250 ML BAG 7.5 MG IV (01:24)
--- NOTE | 2025-07-02 01:40 | XRR_ITS ---
PROCEDURE INFORMATION: Exam: XR Chest Exam date and time: 07/02/2025 2:00 AM Age: 55 years old Clinical indication: Shortness of breath TECHNIQUE: Imaging protocol: Radiologic exam of the chest. Views: 1 view. COMPARISON: CT angio chest PE protcl [id number] 07/01/2025 8:14 PM FINDINGS: Lungs: Emphysematous changes are noted. Focal airspace disease involving the lateral and posterior right upper lobe is stable from prior CT dated 07/01/2025. Pleural spaces: No pleural effusion. No pneumothorax is seen. Heart/Mediastinum: The heart is enlarged. Bones/joints: Unremarkable. XR/XR chest 1V portable [id number] IMPRESSION: 1. Focal airspace disease involving the lateral and posterior right upper lobe is stable from prior CT dated 07/01/2025. 2. Cardiomegaly.
[2025-07-02] MEDS: FUROsemide 10 mg/mL SDV 4mL 40 MG IVP (02:05)
[2025-07-02] MEDS: etomidate 2 mg/mL INJ SDV 10 mL 25 MG IVP (02:33)
[2025-07-02] MEDS: rocuronium 10 mg/mL INJ 5mL 100 MG IVP (02:33)
[2025-07-02] MEDS: DOBUTamine drip 500 MG/250 ML PREMIX 11.55 MG IV (02:40)
[2025-07-02] MEDS: fentaNYL 1,000 MCG/100 ML BAG 2.5 MCG IV (02:40)
--- NOTE | 2025-07-02 02:40 | XRR_ITS ---
PROCEDURE INFORMATION: Exam: XR Chest Exam date and time: 07/02/2025 2:42 AM Age: 55 years old Clinical indication: Device placement; Other: Ng, ett, central line; Additional info: Chest pain TECHNIQUE: Imaging protocol: Radiologic exam of the chest. Views: 1 view. COMPARISON: CR (CHEST, ) 07/02/2025 2:00 AM FINDINGS: Tubes, catheters and devices: Right internal jugular catheter with the tip projecting over the superior cavoatrial junction. NG tube with the tip and side hole projecting over the stomach. ETT with the tip 2.4 cm from the daisha. Recommend retracting approximately 2-3 cm. Lungs: Emphysematous changes. Rounded lucency along the right hilum corresponding to known bullous change. Right lower lobe calcified granuloma. Pleural spaces: Unremarkable. No pleural effusion. No pneumothorax. Heart/Mediastinum: Calcified mediastinal lymph nodes. Bones/joints: Unremarkable. XR/XR chest 1V portable [id number] IMPRESSION: 1. ETT with the tip 2.4 cm from the daisha. Recommend retracting approximately 2-3 cm. 2. NG tube and central line appropriately positioned.
[2025-07-02 03:13] LABS: ABG PCO2 54.7 mmHg (35-45); Alveolar-Arterial Oxygen Gradi 52.7 mmHg (5-10); Arterial Blood Gas Hematocrit 40.9 % (42-52); Blood Gas Operator Identificat SAM; Blood Gas Sample Site Brachial, right; Blood Gas Sample Type Arterial; Carboxyhemoglobin 0.9 %THgb (0.4-20.1); Glucose Level-ABG 89.0 mg/dL (70-115); HCO3 ABG 15.8 mmol/L (22-26); Ionized Calcium Level - ABG 1.0 mmol/L (1.1-1.4); Methemoglobin 0.3 % (0.4-1.5); Oxygen Saturation ABG > 99.1; PEEP 8.0 cmH20; PO2 ABG 241.0 mmHg (80.0-100.0); PO2 FiO2 Ratio Arterial Blood 241; Potassium Level - ABG 5.6 mmol/L (3.5-5.0); Sodium Level - ABG 132.0 mmol/L (131-143)
[2025-07-02 03:27] LABS: Hematocrit 38.7 % (37-53); Hemoglobin 12.60 g/dL (11.27-16.99); Mean Corpuscular HGB Conc 32.6 g/dL (30-55); Mean Corpuscular Hemoglobin 29.3 pg (27-33); Mean Corpuscular Volume 90.0 fl (82-101); Nucleated Red Blood Cells % 0.3 %; Platelet Count 119 10^3/cmm (157-399); Red Blood Count 4.30 10^6/uL (3.85-5.65); White Blood Count 12.27 10^3/uL (3.29-11.43)
[2025-07-02 03:48] LABS: Albumin Level 3.4 g/dL (3.5-5.2); Alkaline Phosphatase 96 U/L (40-130); Anion Gap 30.0 (5-19); Blood Urea Nitrogen 40 mg/dL (6-20); Calcium 7.7 mg/dL (8.5-10.5); Carbon Dioxide 14 mmol/L (22-29); Chloride 93 mmol/L (98-107); Creatinine Clr Calc Pharmacy 46.1803; Globulin 2.9 g/dL (1.3-4.6); Glucose 93 mg/dL (65-115); Magnesium 2.2 mg/dL (1.7-2.3); Osmolality Calculated 281 mOsm/kg (285-295); Potassium 6.0 mmol/L (3.5-5.1); Sodium 131 mmol/L (136-145); Total Protein 6.3 g/dL (6.6-8.7)
[2025-07-02] MEDS: EPINEPHrine 2.5 MG in sodium chloride 0.9% 250 ML 6.06 MG IV (03:49)
[2025-07-02 04:01] LABS: Alanine Aminotransferase 1539 U/L (0-41); Aspartate Amino Transferase 2379 U/L (0-40)
[2025-07-02 04:03] LABS: Lactate (Lactic Acid level) 7.7 mmol/L (0.5-2.2)
[2025-07-02] MEDS: insulin regular-human 100 units/1 mL 5 UNIT IVP ×2 (04:08)
[2025-07-02] MEDS: calcium gluconate 0.1 gm/mL 10% SDV 10mL 1 GM IVP (04:10)
[2025-07-02] MEDS: vasopressin 40 UNIT/100 ML PREMIX IV ×2 (04:10→09:49)
[2025-07-02 04:32] LABS: NT Pro B Type Natriuretic Pept > 70000 pg/mL (0-125)
--- NOTE | 2025-07-02 04:36 | P.EN_ITS ---
Event Note Event Note: High likelihood of severe cardiogenic shock leading to acute hypoxic respiratory failure, The sinus informed that the patient is having difficulty in breathing with pale face and looks a little anxious Patient was seen, he was sitting in tripod position with his hands on his knees, intercostal recession and supraclavicular dipping was noted. He was having cold peripheries and pale facies, the patient was having difficulty in breathing he was alert and oriented however he was gasping for air and unable to complete sentences. The patient neck veins were full. Based on the patient fatigue and severe respiratory distress I performed urgent bedside ultrasound and parasternal long axis view of the heart showed severely reduced left ventricular function with dilation and septum deviation to the right side. RV was not dilated therefore less likely to be massive PE or PE to cause respiratory distress. On auscultation of the chest there was harsh breathing some bibasal crypts. Patient was informed thoroughly about his clinical condition and the need of intubation. The patient was alert oriented and had the capacity. He accepted to be intubated. ER was taken as backup. Timeout was done and successful endotracheal intubation with mechanical ventilation was done in the first attempt. Intubation was confirmed with end-tidal CO2 and chest x-ray. Arterial line and central line was also inserted. Patient MAP was hardly reaching 50s. The patient was started on norepinephrine, dobutamine and further addition of the rest of the vasopressors were done based on the patient MAP. Blood gas showed patient having severe acidosis therefore was started on bicarb infusion after boluses since his vasopressors were not working in this severe acidotic condition. On-call emotional support teacher was consulted and further decision of cardiac support was made. Cardiac Highway Painter Helper was activated after discussing with the emotional support teacher for possible Impella device. Patient was managed and taken care of in the best interest to make him optimized clinically. However patient prognosis looks grim. The patient family was informed. Patient's daughter was made aware however could not get hold of the . The daughter preferred to come and also to do everything to save her father's life. Every step of management with benefits risk, acuity of the illness with grim prognosis has been informed to the daughter who is on her way to see her father. There was no language barrier. She appreciates the ICU team intervention and informing her about his condition. Meanwhile to continue with every effort to support patient. Electrolytes are being monitored and corrected accordingly as well. Vasopressors to keep the MAP above 65 Cards on board for possible Impella as a cardiac support Continue on antibiotics meanwhile to cover any other source of infection if there is any. Event Notes Attestations Time Spent in Patient Care: Greater than 35 minutes (>than 50% of time spent in counselling and/or direct pt care on unit) .
[2025-07-02 04:58] LABS: ABG PCO2 54.5 mmHg (35-45); Alveolar-Arterial Oxygen Gradi 51.8 mmHg (5-10); Arterial Blood Gas Hematocrit 36.5 % (42-52); Blood Gas Operator Identificat SAM; Blood Gas Sample Type Arterial; Blood Gas Tidal Volume 0.55; Carboxyhemoglobin 1.0 %THgb (0.4-20.1); Glucose Level-ABG 249.0 mg/dL (70-115); HCO3 ABG 16.2 mmol/L (22-26); Ionized Calcium Level - ABG 1.0 mmol/L (1.1-1.4); Methemoglobin 0.4 % (0.4-1.5); Oxygen Saturation ABG > 99.1; PEEP 5.0 cmH20; PO2 ABG 248.0 mmHg (80.0-100.0); PO2 FiO2 Ratio Arterial Blood 248; Potassium Level - ABG 4.1 mmol/L (3.5-5.0); Sodium Level - ABG 133.0 mmol/L (131-143)
--- NOTE | 2025-07-02 05:07 | XACV_ITS ---
Exam Room: [facility] Ht: 188 cm Wt: 77 kg BSA: 2.00 m2 Gender: Male : 1970 Any Known Allergies: Penicillins Exam Priority: Routine Procedure(s): Procedure Description: Diagnostic procedure Procedure Description: Left ventriculography Procedure Description: Miscellaneous Procedure Description: ACT Procedure Description: Coronary Angiography Diagnostic Cath Status: Emergency Diagnostic Findings * INDICATION: Cardiogenic shock. * No significant disease noted in the Left Main, Left Anterior Descending, Right, or Circumflex coronary arteries. * Severe aortic stenosis. Mean gradient across aortic valve of 79mmHg. Peak to peak gradient of 118mmHg. * Coronary angiography shows right dominance. Interventional Findings * Procedure detail: We obtained access in right common femoral artery under ultrasound guidance. 6 Swedish sheath was placed for left heart cath. This was switched to Impella sheath. Impella CP was inserted in left ventricle under fluoroscopic guidance. Excellent flow noted. Patient left the prosthetics lab technician in stable condition. . Conclusions 1. No significant disease noted in the Left Main, Left Anterior Descending, Right, or Circumflex coronary arteries. 2. Critical aortic stenosis. 3. S/p Impella placement. Recommendations * Patient needs transfer to tertiary care center for aortic valve replacement. Interventional RX Recommendation: other cardiac therapy w/o CABG/PCI Diagnostic RX Recommendation: other cardiac therapy w/o CABG/PCI Anticoagulation: Heparin Pressures Phase:Rest AO : 70 / 45 ( 55 ) @ 6:51:00 AM 77 / 47 ( 60 ) @ 7:05:00 AM 79 / 46 ( 59 ) @ 7:05:00 AM LV : 195 / -7 / 36 @ 7:04:00 AM 195 / - 36 @ 7:05:00 AM Valves Phase:DefaultPhase AV : 118.0 @ 7:01:22 AM AV Mean Gradient: 79.0 @ 7:01:22 AM Clinical Evaluation EBL: 5mL-10mL Procedural Details Pre-Procedure Time Out. Identified patient by full name and date of as verbalized by the patient/guarantor. Does the consent match the physician's order: N/A Emergent. Accurate & Complete Informed Consent: N/A Emergent. Inpatient/Outpatient History & Physical on Chart: N/A Emergent. If H&P is completed, is and addenduem needed: N/A Emergent; If yes, is the addendum complete: N/A Emergent. Visualize and Verify Site with Patient/Guarantor: N/A. Relevant Radiology Images available: Yes. Pre-op teaching completed and patient verbalized understanding. The risks, benefits, and alternatives of sedation and/or procedure were discussed by physician. The patient agrees to continue. Procedure started. Physician arrived. [facility] Clinical Fraility Score: 5: Mildly Frail. Assistant Property Manager Indications: Other/Cardiogenic shock. Chest Pain Symptom Assessment: Atypical Angina. Cardiovascular Instability: Yes, if yes, Cardiogenic Shock. Correct patient, site and procedure confirmed by cath team. patient arrived on a ventilator and sedated with Fentanyl. IV Site on Arrival: 20 gauge in the right anticubital. IV Site on Arrival: 20 gauge in the left wrist. IV Site on Arrival: 20 gauge in the left hand. IV Site on Arrival: TLC in the right IJ. Pre Procedural Pulses: bilateral dorsalis pedis was Absent. Pre Procedural Pulses: bilateral posterior tibial was Absent. bilateral groins was prepped with chloroprep then draped in the usual sterile fashion. Physician notified. Baseline sample Acquired. HR: 85 BPM. Patient arrived to prosthetics lab technician on a ventilator and will be managed by respiratiory. Zavala cath in place on arrival to the prosthetics lab technician. Patient's family in the prosthetics lab technician waiting room. Dr. Beltran will update at the completion of the procedure. Equipment: 6F - Femoral. Cardiac Cath Pack. ACIST Manifold Kit Model BT 2000. Heparinized Saline (2 units/mL), 1000 mL bag. Kit, Micropuncture. Physician scrubbed in. Immediate Pre-Procedure Time Out. Correct Patient: Yes; Correct Procedure: Yes; Correct Site: Yes; Correct Patient Position: Yes; Correct Supplies: Yes; Dried Flammable Prep: Yes; Blood Products Available: N/A;. Lidocaine 1% infiltrated to the right groin. Drips on arrival to the prosthetics lab technician: Dobutamnine 20mcg/kg/min, Norepinephrine 35mcg/min, Aminodarone 0.5mg/min, Vasopressin 0.1 units/min, Bicarb 200ml/hr, Epinephrine 20mcg/min, Heparin 24ml/hr, Fentanyl 75mcg/hr. Arterial access obtained with micropuncture set using ultrasound guidance. A 5 salvadorean JL4 catheter in over wire. ACT drawn. Results 175 seconds. Therapeutic limits - pre-heparin administration 90-150 seconds and monitoring heparin during a vascular procedure >250 seconds. Multiple views taken of left coronary artery. Catheter removed over the standard wire. A 5 salvadorean JR4 catheter in over wire. Multiple views taken of right coronary artery. Catheter redirected to the LV over the exchange Glidewire. Unable to cross with the JR4. Catheter removed over the glidewire. A 5 salvadorean AL1 catheter in over the glidewire. Glidewire out, exchange J wire in. Catheter removed over the exchange J wire. A 5 salvadorean Angled Pig catheter in over the exchange J wire. Exchange J wire out. EDP Sample taken: LV 195/-8,36; HR: 83 BPM; SpO2: 98%. Pullback taken: LV 195/-8,36; AO 77/47(60); Mean: 79mmHg, Peak to Peak: 118mmHg, SEP: 24sec/min; HR: 83 BPM; SpO2: 95%. Catheter removed over the standard J wire. A 5 salvadorean JR4 catheter in over the stiff impella wire. Catheter removed over the stiff impella wire. Lidocaine 1% infiltrated to the right groin. Sheath upsized to the 14 salvadorean impella sheath after using the 8 and 12 salvadorean dilators. Stiff impella wire out. A 5 salvadorean AL1 catheter in over the glidewir and advanced to the LV. Heparin drip off. Glidewire out, exchange J wire in. Exchange J wire out, glidewire in. Glidewire out, impella wire in. Catheter removed over the impella wire. Impella in OTW. Impella wire out. Impella Support on. 14 salvadorean impella sheath peeled away. ACT drawn. Results 274 seconds. Therapeutic limits - pre-heparin administration 90-150 seconds and monitoring heparin during a vascular procedure >250 seconds. Impella sutured in. Post Procedure: Pulses reassessed and unchanged. patient remains unresponsive. No VTE prophylaxis required. Medication's Wasted: Heparin = 1000 units. Post-op diagnosis: Cardiogenic shock, non-obstructive CAD, s/p impella insertion. Complications: none. Estimated blood loss: 5mL-10mL. Airway - Remains intubated and ventilated per RT. Circulation: lower extremity pulses are absent. Nausea/Vomiting: No. Procedure completed. Vital chart was stopped. Patient transferred by bed to ICU. Access Site Site: Right Femoral artery Sheath Size: 6 Fr Hemostasis Success: Unsuccessful Procedure Medications Start: 6:22 AM Stop: 6:22 AM Medication: Heparin Amount: 5000 units Route: I.V. I, the attending physician, have reviewed and verified all procedure medications. Yes, all medications given per verbal order Report Signatures Finalized by Mahamed Beltran MD on 07/02/2025 08:51 AM
--- NOTE | 2025-07-02 05:14 | PM.ACPR ---
Procedure/Consent Time out: Time Out Performed: Yes Consent: Consent for Procedure: Consent obtained from patient Acute Procedures Arterial Line: Time out performed: Yes Size (Gauge): 20 Technique used: guide wire technique Post-Procedure: line sutured into place and dry sterile dressing placed Patient tolerated procedure: well and no complications Complications: none Site: right Central Line Placement: Right IJ: Time out performed: Yes Patient placed on monitor/pulse ox: Yes MD prep: mask, gown and gloves Central line prep: Chlorhexidine scrub and sterile drapes applied Local anesthesia used: lidocaine 1% Ultrasound used for placement: Yes Central line lumen inserted: triple Post procedure: sutured in place, good blood return, all ports aspirated, flushed, capped and sterile dressing applied Post procedure x-ray: tip of catheter in good position and no pneumothorax seen Patient tolerated procedure: well and no complications Complications: none Epistaxis Control: Time out performed: Yes
--- NOTE | 2025-07-02 05:17 | W.PM.OPSUD ---
Surgery/Procedure H&P Update DATE OF PROCEDURE: July 02, 2025 DATE H&P PERFORMED: 07/01/25 H&P UPDATE INFORMATION: I have reviewed H&P completed within last 30 days, I have examined patient prior to procedure and Changes to prior documentation as noted here CHANGES TO PREVIOUS DOCUMENTATION: Overnight patient went into cardiogenic shock. Multiorgan failure with worsening creatinine and LFTs going over 2000. On multiple pressors with systolic blood pressure in 60s. Initial echocardiogram had reported EF of 32%. Bedside echo performed by primary team showing EF of 10 to 15% now. Interventional cardiology called by primary team and primary sales and marketing executive, Dr Rivas for Impella support. I have spoken over the phone with patient's family to obtain consent. Risks and benefits explained. Updated them regarding the situation. He is intubated. PREOP DIAGNOSIS: Cardiogenic shock PRIMARY INDICATION FOR PROCEDURE: Cardiogenic shock PLANNED PROCEDURE: LV support device placement/ Impella placement Patient is intubated and sedated PATIENT REASSESSED PRIOR TO SEDATION, WITH NO CHANGE NOTED: Yes OTHER PERTINENT EXAM FINDINGS: Patient is intubated. Diminished air entry bilaterally. Has grade 2/6 systolic murmur. Lower extremities are cold
--- NOTE | 2025-07-02 05:17 | PM.ACPR ---
Acute Procedures Arterial Line: Size (Gauge): 20 Intubation: Time out performed: Yes Sedative: etomidate Paralytic: rocuronium Laryngoscope: fiber optic video scope Assist device used: fiber optic device ET tube size: 8 Tube secured location: lips Tube placement confirmation: visualized tube passing through cords, equal breath sounds bilaterally, no breath sounds over epigastrium, confirmation by capnometry and color change noted Patient tolerated procedure: well and no complications Intubation complications: none Additional comments: CXR confirmed ETT placement
[2025-07-02 05:25] LABS: Lactate (Lactic Acid level) 9.2 mmol/L (0.5-2.2)
--- NOTE | 2025-07-02 06:31 | PC.NURSE ---
At 0130 pt became more short of breath, color wheeler, skin cool and clammy, marked increase in JVD, complained of left sided flank pain, increasingly difficult to obtain blood pressures and getting softer with each read. Contacted Dr. Bardales and made aware of findings, new orders received and shortly came to bedside. Attempted bipap and pt became more anxious and was ineffective in relieving shortness of breath. Dr. Bardales discussed findings with patient and pt gave verbal consent for intubation, orders given by Dr. Bardales in correlation to discussion and intubation. Sedation and paralytic pushed at 0233, intubation completed at 0235 with positive color change, size 8 tube 26 at lip. OG placed, augustine placed, arterial line and central line placed by Dr. Bardales with standby/supervision of ED physician. Placement of all confirmed by x ray. Pt continued to decline and became increasingly unstable following, verbal orders given and administration as per NOV, and verbal orders for med titrations outside of protocol. Dr. Bardales consulted with cardiology, taken to component lab tech at approx 0600.
--- NOTE | 2025-07-02 07:17 | PM.PROC ---
Procedure Note: Date of procedure: 07/02/25 Pre-procedure diagnosis: Cardiogenic shock Post-procedure diagnosis: other (S/p Impella placement. Critical aortic stenosis) Procedure: Patent coronary arteries. S/p Impella placement through right common femoral artery access site Patient has critical aortic stenosis with mean gradient across aortic valve of 79mmHg and peak to peak gradient of 118mmHg. Performing Provider: Mahamed Beltran Estimated blood loss (mL): 10 Complications: None Condition: critical Disposition: ICU Coding Level of Care Code Acute Code for Austen Mcdaniels
[2025-07-02 07:30] LABS: ABG PH Result 7.08 (7.35-7.45)
[2025-07-02 07:32] LABS: ABG PH Result 7.07 (7.35-7.45)
--- NOTE | 2025-07-02 07:34 | PC.NURSE ---
Patient arrived back from center medical and lab director at [id number]
[2025-07-02] MEDS: EPINEPHrine 2.5 MG in sodium chloride 0.9% 250 ML 121.2 MG IV (07:59)
[2025-07-02 08:17] LABS: ABG PCO2 47.7 mmHg (35-45); Arterial Blood Gas Hematocrit 35.8 % (42-52); Blood Gas Operator Identificat MONRO; Blood Gas Sample Type Arterial; Carboxyhemoglobin 0.8 %THgb (0.4-20.1); Glucose Level-ABG 317.0 mg/dL (70-115); HCO3 ABG 15.2 mmol/L (22-26); Ionized Calcium Level - ABG 0.9 mmol/L (1.1-1.4); Methemoglobin 0.3 % (0.4-1.5); Oxygen Saturation ABG > 99.1; PO2 ABG 230.0 mmHg (80.0-100.0); Potassium Level - ABG 3.8 mmol/L (3.5-5.0); Sodium Level - ABG 132.0 mmol/L (131-143)
[2025-07-02 08:18] LABS: ABG PH Result 7.11 (7.35-7.45); Alveolar-Arterial Oxygen Gradi 55.2 mmHg (5-10); Blood Gas Sample Site A; Blood Gas Tidal Volume 0.55; PEEP 5.0 cmH20; PO2 FiO2 Ratio Arterial Blood 230
[2025-07-02] MEDS: norepinephrine 4 MG/250 ML BAG 131.25 MG IV (08:30)
--- NOTE | 2025-07-02 08:34 | PC.NURSE ---
Doppler pulses bilateral lower extremities unattainable upon arrival and still currently. Provider aware
[2025-07-02 08:36] LABS: Reflex FDPQ test REFLEX FDP QUEST TES
[2025-07-02 08:38] LABS: Partial Thromboplastin Time 72.9 SECONDS (23.9-36.7)
--- NOTE | 2025-07-02 08:41 | PC.NURSE ---
Bilateral popliteal pulses present with Doppler
[2025-07-02 08:49] LABS: PCP Screen Urine Negative (Negative)
[2025-07-02 08:58] LABS: Hematocrit 34.9 % (37-53); Hemoglobin 11.50 g/dL (11.27-16.99); Mean Corpuscular HGB Conc 33.0 g/dL (30-55); Mean Corpuscular Hemoglobin 29.8 pg (27-33); Mean Corpuscular Volume 90.4 fl (82-101); Nucleated Red Blood Cells % 0.2 %; Platelet Count 101 10^3/cmm (157-399); Red Blood Count 3.86 10^6/uL (3.85-5.65); White Blood Count 18.94 10^3/uL (3.29-11.43)
[2025-07-02 09:04] LABS: Lactic Sepsis W/Reflex 11.1 mmol/L (0.5-2.2)
[2025-07-02 09:09] LABS: Fibrinogen 238 mg/dL (174-498); INR 2.57 (0.8-1.2); Partial Thromboplastin Time 72.9 SECONDS (23.9-36.7); Prothrombin Time 29.10 SECONDS (12.1-14.9)
[2025-07-02] MEDS: albumin 25 G/100 ML BAG 60 G IV (09:51)
[2025-07-02 09:57] LABS: Reflex Lactate Order REFLEX LACTIC ORDERD
[2025-07-02 10:02] LABS: ABG PCO2 48.0 mmHg (35-45); Alveolar-Arterial Oxygen Gradi 45.5 mmHg (5-10); Arterial Blood Gas Hematocrit 36.8 % (42-52); Blood Gas Operator Identificat MONRO; Blood Gas Sample Site Not specified; Blood Gas Sample Type Arterial; Blood Gas Tidal Volume 0.55; Carboxyhemoglobin 1.0 %THgb (0.4-20.1); Glucose Level-ABG 359.0 mg/dL (70-115); HCO3 ABG 17.7 mmol/L (22-26); Ionized Calcium Level - ABG 1.0 mmol/L (1.1-1.4); Methemoglobin 0.3 % (0.4-1.5); Oxygen Saturation ABG 96.2; PEEP 5.0 cmH20; PO2 ABG 93.4 mmHg (80.0-100.0); PO2 FiO2 Ratio Arterial Blood 133; Potassium Level - ABG 4.0 mmol/L (3.5-5.0); Sodium Level - ABG 130.0 mmol/L (131-143)
[2025-07-02 10:03] LABS: ABG PH Result 7.18 (7.35-7.45)
[2025-07-02] MEDS: EPINEPHrine 5 MG in sodium chloride 0.9% 500 ML 84.84 MG IV ×2 (10:34→10:36)
[2025-07-02] MEDS: norepinephrine 4 MG/250 ML BAG 105 MG IV ×2 (10:34→10:41)
[2025-07-02 10:41] LABS: Lactate (Lactic Acid level) 9.4 mmol/L (0.5-2.2)
--- NOTE | 2025-07-02 10:47 | P.PN_ITS ---
<Statement entered by Georges Rivas MD - 07/02/25 18:50> Patient was evaluated and cared for in conjunction with an advanced practice practitioner. I personally saw the patient and reviewed the chart and all pertinent data. I discussed the patient in detail with the advanced practice practitioner. Please see their note for complete assessment and agreed upon plan of care for the patient. In addition, Persistent atrial fibrillation with RVR - converted to NSR with IV amio. Remains in NSR. On IV heparin. Subjective 2 Subjective: He remains very critical, vasopressors have been weaned but he remains on Levophed, epinephrine and vasopressin, systolic blood pressures ranging in the 80's. He remains intubated and sedated, FiO2 reduced to 70% with PEEP of 5. He is in sinus rhythm, amiodarone infusion 0.5 mg/min. Impella still in place. AST 2379, ALT 1539, platelets decreased to 119, lactate 9.2. Awaiting transfer of patient to [facility], Dr. Rojas has accepted the patient. Vitals/I&O/Wt Last Vital Signs Temp 97.6 F 07/02/25 08:10 Pulse 76 07/02/25 09:35 Resp 20 H 07/02/25 08:37 BP 87/64 07/02/25 09:35 Pulse Ox 99 07/02/25 09:35 O2 Del Method Nasal Cannula 07/01/25 21:31 FiO2 70 07/02/25 08:37 07/01/25 07/02/25 07/02/25 22:59 06:59 14:59 Intake Total 1050 / 3099.003 2049.003 / 3099.003 2393.098 / 2393.098 Output Total 150 / 150 Balance 900 / 2949.003 2049.003 / 2949.003 2393.098 / 2393.098 Weight last 48 hrs Weight 169 lb 12.095 oz Weight 166 lb Physical Exam 2 Resp: EFFORT & INSPECTION: Yes symmetric chest movement AUSCULTATION: rales bilateral in the lower lung [place] OTHER: intubated Cardio: COMMON NORMALS: regular rate, regular rhythm, S1 normal heart sound present and S2 normal heart sound present RATE: regular rate RHYTHM: r egular rhythm HEART SOUNDS: S1 normal heart sound present and S2 normal heart sound present Neuro: OTHER: when sedation was paused, he was able to nod yes and no, followed commands. Urinary Catheter Management: Zavala: Cath Placed During This Visit: yes Urinary Catheter Time of Insertion: 04:31 Data 07/02/25 08:52 07/02/25 03:10 Micro: Microbiology 07/01/25 21:10 Blood Culture - Preliminary Blood SPECIMEN COLLECTED 07/01/25 15:04 Blood Culture - Preliminary Blood SPECIMEN COLLECTED A&P Assessment and plan 1. Cardiogenic shock: 2. Acute systolic CHF (congestive heart failure): 3. Severe aortic stenosis: 4. Acute kidney injury: 5. Lactic acidosis: 6. Acute hypoxic respiratory failure: Plan: Cardiogenic shock due to critical aortic stenosis. Patent coronary arteries by [facility] done this morning. Critical condition but stable at this time. Awaiting transfer to [place] for aortic valve replacement. Continue all vasopressors to keep MAP above 65, 150mL urine output. Continue amiodarone infusion. PDMP PDMP Reviewed: Not Reviewed Attestations 2 Medical Necessity Statement*: awaiting transfer Procedures Arterial Line Size (Gauge): 20 Coding Level of Care Code Acute Code for g Fwd Diagnoses Cardiogenic shock R57.0 Acute systolic CHF (congestive heart failure) I50.21 Severe aortic stenosis I35.0 Acute kidney injury N17.9 Lactic acidosis E87.20 Acute hypoxic respiratory failure J96.01
[2025-07-02 11:10] LABS: INR 2.62 (0.8-1.2); Prothrombin Time 29.50 SECONDS (12.1-14.9)
[2025-07-02 11:22] LABS: Lactate (Lactic Acid level) 7.7 mmol/L (0.5-2.2)
--- NOTE | 2025-07-02 11:49 | PC.NURSE ---
Decreasing Pressors, left peripheral pedal pulse present now, and right popliteal present.
[2025-07-02 11:56] LABS: Alkaline Phosphatase 84 U/L (40-130); Globulin 2.3 g/dL (1.3-4.6)
[2025-07-02] MEDS: midazolam 1 mg/mL INJ 2 mL 2 MG IVP (12:12)
[2025-07-02] MEDS: midazolam hcl 100 MG/100 ML BAG IV (12:19)
[2025-07-02 12:23] LABS: Hematocrit 34.1 % (37-53); Hemoglobin 11.30 g/dL (11.27-16.99); Mean Corpuscular HGB Conc 33.1 g/dL (30-55); Mean Corpuscular Hemoglobin 29.9 pg (27-33); Mean Corpuscular Volume 90.2 fl (82-101); Nucleated Red Blood Cells % 0.2 %; Platelet Count 102 10^3/cmm (157-399); Red Blood Count 3.78 10^6/uL (3.85-5.65); White Blood Count 20.23 10^3/uL (3.29-11.43)
[2025-07-02 12:55] LABS: Albumin Level 3.1 g/dL (3.5-5.2); Blood Urea Nitrogen 46 mg/dL (6-20); Calcium 7.0 mg/dL (8.5-10.5); Carbon Dioxide 16 mmol/L (22-29); Glucose 334 mg/dL (65-115); Total Protein 5.4 g/dL (6.6-8.7)
[2025-07-02 13:06] LABS: ABG PCO2 45.0 mmHg (35-45); ABG PH Result 7.29 (7.35-7.45); Alveolar-Arterial Oxygen Gradi 45.6 mmHg (5-10); Arterial Blood Gas Hematocrit 35.8 % (42-52); Blood Gas Allen Test Pos; Blood Gas Operator Identificat BROMA; Blood Gas Sample Type Arterial; Carboxyhemoglobin 0.9 %THgb (0.4-20.1); Glucose Level-ABG 372.0 mg/dL (70-115); HCO3 ABG 21.7 mmol/L (22-26); Ionized Calcium Level - ABG 0.9 mmol/L (1.1-1.4); Methemoglobin 1.2 % (0.4-1.5); Oxygen Saturation ABG 99.1; PEEP 5.0 cmH20; PO2 ABG 129.0 mmHg (80.0-100.0); Potassium Level - ABG 4.2 mmol/L (3.5-5.0); Sodium Level - ABG 128.0 mmol/L (131-143)
[2025-07-02 13:08] LABS: Chloride 93 mmol/L (98-107); Sodium 137 mmol/L (136-145)
[2025-07-02 13:13] LABS: Blood Gas Respiratory Rate 20.0 %; Blood Gas Sample Site ART LINE; Blood Gas Tidal Volume .55
[2025-07-02 13:14] LABS: PO2 FiO2 Ratio Arterial Blood 184
[2025-07-02 13:25] LABS: Creatinine Clr Calc Pharmacy 43.9812; Osmolality Calculated 309 mOsm/kg (285-295)
[2025-07-02] MEDS: norepinephrine 4 MG/250 ML BAG 20 MG IV (13:26)
[2025-07-02] MEDS: fentaNYL 1,000 MCG/100 ML BAG 7.5 MCG IV ×2 (13:27→13:30)
--- NOTE | 2025-07-02 13:27 | PM.CONSULT ---
Providers/Reason For Consult Consulting Physician/Specialty*: Dr Margarito Brown Reason for Consult*: Shock Attending Physician: Dar Lynne MD History of Present Illness History of Present Illness All Rae is a 55 year old male with pmx of tobacco dependence and comes in initially to the ER with symptoms of tachycardia and feel weak/ Also complained of chest pain, shortness of breath and developed afib with RVR, went into shock requiring pressors after needing intubation Patent coronary arteries. S/p Impella placement through right common femoral artery access site Patient has critical aortic stenosis with mean gradient across aortic valve of 79mmHg and peak to peak gradient of 118mmHg. currently intubated, on vent, tolerating peep of 5 and TV 550ml well with o2 sat 92% Also on 4 pressors- epi gtt, vaso, levo and on impella at P-8. on amio at 0.5 Medications/Allergies Home Medications ?Medication ?Instructions ?Recorded ?Confirmed ?Last Taken ?Type aspirin 81 mg tablet,delayed 81 mg PO DAILY 07/01/25 07/01/25 07/01/25 History release cyanocobalamin (vitamin B-12) 1,000 mcg PO DAILY 07/01/25 07/01/25 07/01/25 History 1,000 mcg tablet (Vitamin B-12) elderberry fruit 350 mg capsule 350 mg PO DAILY 07/01/25 07/01/25 07/01/25 History guaifenesin 600 mg tablet, 600 mg PO DAILY 07/01/25 07/01/25 07/01/25 History extended release 12 hr (Mucinex) magnesium 250 mg tablet 250 mg PO DAILY 07/01/25 07/01/25 07/01/25 History multivitamin 1 tab PO DAILY 07/01/25 07/01/25 07/01/25 History sour ag extract 1,000 mg 1,000 mg PO DAILY 07/01/25 07/01/25 07/01/25 History capsule (Tart Ag Extract) turmeric root extract 500 mg 500 mg PO DAILY 07/01/25 07/01/25 07/01/25 History capsule Allergies Allergy/AdvReac Type Severity Reaction Status Date / Time Penicillins Allergy ALGY-Hives Verified 07/01/25 15:11 Current Medications Generic Name Dose Route Start Last Admin Trade Name Freq PRN Reason Stop Dose Admin Acetaminophen 650 mg 07/01/25 21:23 07/02/25 01:40 Acetaminophen 325 Mg Tablet PO 650 mg Q6H PRN Administration Mild/Mod Pain Or Temp >/= 101 Aspirin 81 mg 07/01/25 21:23 07/02/25 07:13 Aspirin 81 Mg Ec Tablet PO Not Given DAILY JAY Atorvastatin Calcium 80 mg 07/01/25 21:23 07/01/25 21:54 Atorvastatin 40 Mg Tablet PO 80 mg BEDTIME JAY Administration AMIODARONE HCL/D5W 900 mg in 500 mls @ 0 mls/hr 07/01/25 15:23 07/02/25 01:20 Amiodarone 900 Mg/500 Ml-D5w IV 0.5 mg/min .Q0M JAY 16.67 mls/hr Protocol Titration Per Protocol Heparin Sodium/Sodium Chloride 25,000 unit in 500 mls @ 0 mls/hr 07/01/25 16:30 07/02/25 07:38 Heparin Drip IV 14.61 unit/kg/hr CONT JAY 22 mls/hr Protocol Titration Per Protocol Dextrose 125 mls @ 750 mls/hr 07/01/25 17:44 07/02/25 06:23 D10w IV Infused PRN PRN Infusion HYPOGLYCEMIA Norepinephrine Bitartrate 4 mg in 250 mls @ 0 mls/hr 07/01/25 21:23 07/02/25 13:26 Levophed IV 5.33 mcg/min .Q0M JAY 20 mls/hr Protocol Administration Per Protocol Fentanyl 1,000 mcg in 100 mls @ 0 mls/hr 07/02/25 02:30 07/02/25 03:31 Sublimaze IV 75 mcg/hr .Q0M JAY 7.5 mls/hr Protocol Titration Per Protocol Dobutamine HCl/Dextrose 500 mg in 250 mls @ 0 mls/hr 07/02/25 02:45 07/02/25 08:52 Dobutamine Drip IV 0 mcg/kg/min .Q0M JAY 0 mls/hr Protocol Titration Per Protocol Sodium Bicarbonate 150 meq/ 1,150 mls @ 200 mls/hr 07/02/25 03:30 07/02/25 09:31 Dextrose IV 200 mls/hr .Q5H45M JAY Administration Epinephrine HCl 2.5 mg/ Sodium 252.5 mls @ 0 mls/hr 07/02/25 03:45 07/02/25 10:36 Chloride IV Infused .Q0M JAY Titration Protocol Per Protocol Vasopressin 40 unit in 100 mls @ 0 mls/hr 07/02/25 04:15 07/02/25 09:49 Vasostrict IV 0.1 unit/min .Q0M JAY 15 mls/hr Protocol Titration Per Protocol Albumin Human 25 g in 100 mls @ 60 mls/hr 07/02/25 09:00 07/02/25 11:34 Albumin IV Infused Q8H JAY Infusion Epinephrine HCl 5 mg/ Sodium 505 mls @ 0 mls/hr 07/02/25 09:30 07/02/25 10:36 Chloride IV 14 mcg/min .Q0M JAY 84.84 mls/hr Protocol Administration Per Protocol Midazolam HCl 100 mg in 100 mls @ 0 mls/hr 07/02/25 12:15 07/02/25 12:32 Versed IV 2 mg/hr .Q0M JAY 2 mls/hr Protocol Titration Per Protocol Lanolin 1 applic 07/01/25 23:12 07/02/25 00:07 Lanolin Oint 7 Gm TOPICAL 1 applic PRN PRN Administration DRYNESS Pantoprazole Sodium 40 mg 07/01/25 21:23 07/01/25 21:52 Pantoprazole 40 Mg Sdv IVP 40 mg Q24H JAY Administration PFSH Acute PFSH: Surgical History (Updated 07/01/25 @ 17:36 by Dar Lynne MD) No pertinent past surgical history Social History (Updated 07/01/25 @ 17:36 by Dar Lynne MD) Smoking and tobacco/nicotine status: current every day tobacco/nicotine user Alcohol intake: never Substance/Drug Use: never Vitals/I&O/Wt Last Vital Signs Temp 97.7 F 07/02/25 12:00 Pulse 78 07/02/25 12:00 Resp 20 H 07/02/25 12:56 BP 90/72 07/02/25 12:00 Pulse Ox 95 07/02/25 12:56 O2 Del Method Nasal Cannula 07/01/25 21:31 FiO2 70 07/02/25 12:56 07/01/25 07/02/25 07/02/25 22:59 06:59 14:59 Intake Total 1050 / 1050 2049.003 / 3099.003 2767.565 / 2767.565 Output Total 150 / 150 Balance 900 / 900 2049.003 / 2949.003 2767.565 / 2767.565 Weight last 48 hrs Weight 169 lb 12.095 oz Weight 166 lb Physical Exam Narrative: General: Intubated, sedated HEENT: conj clear, EOMI, PERRL Neck: supple Pulmonary: crackles bibasilar Cardiovascular: rrr, nl s1s2, no mrg Abdomen: soft, nt, nd, no r/g, Extremities: pulses + cool extremities Skin: no rash Neurologic: cannot assess Urinary Catheter Management: Zavala: Cath Placed During This Visit: yes Urinary Catheter Time of Insertion: 04:31 Data 07/02/25 12:06 07/02/25 11:17 Micro: Microbiology 07/01/25 21:10 Blood Culture - Preliminary Blood SPECIMEN COLLECTED 07/01/25 15:04 Blood Culture - Preliminary Blood SPECIMEN COLLECTED A&P Assessment and plan 1. Acute hypoxic respiratory failure: 2. Acute systolic CHF (congestive heart failure): 3. Cardiogenic shock: 4. Severe aortic stenosis: Plan: # Critical aortic stenosis - sp cath, impella in place- critical aortic stenosis noted -Cardiogenic shock, EF of 20 to 25%, peak to peak gradient 118, Impella in place, mean gradient 76, LVEDP 40, LV pressures 132/24, aortic pressure 79/47, mean of 60 - Transfer planned to [facility] for TAVR vs SAVR vs balloon valvuloplasty - Continue versed and fentanyl gtt # Acute respiratory failure - Continue vent support and wean as tolerated - Keep peep low to avoid hypotension related to cutting off preload # Shock liver # acute lactic acidosis - continue bicarb gtt- very acotic with ph of 7.11 # NSTEMI # Hyperkalemia insulin d50 given repeat labs # ANGELO - monitor UOP # Pulmonary edema Continue vent support cannot tolerate any diuresis # Cardiogenic shock Continue impella Continue all 4 pressors to keep MAP above 80- on the higher side Full code The high probability of a clinically significant, sudden or life threatening deterioration of the patient's [Respiratory, cardiac and renal] system(s) required my full and direct attention, intervention and personal management. The critical care time is as shown. This time is in addition to time spent performing any reported procedures but includes the following: [x] Data and vital sign review and interpretation [x] Patient assessment, examination and intervention [x] Documentation [x] Medication orders and management Critical Care Time (min): 35 PDMP PDMP Reviewed: Not Reviewed Procedures Arterial Line Size (Gauge): 20 Coding Level of Care Code Acute Code for Chg Fwd Diagnoses Acute hypoxic respiratory failure J96.01 Acute systolic CHF (congestive heart failure) I50.21 Cardiogenic shock R57.0 Severe aortic stenosis I35.0
[2025-07-02] MEDS: AMIODARONE HCL/D5W 900 MG/500 ML BAG 16.67 MG IV (13:32)
--- NOTE | 2025-07-02 13:33 | PC.NURSE ---
Report called to Robby in [facility] for Manuel at 1315. Patient going to room [address]000, accepting provider is Dr. Wilkerson.
--- NOTE | 2025-07-02 13:57 | PC.NURSE ---
[facility] here for transport [id number]
[2025-07-02 14:08] LABS: Alanine Aminotransferase 3482 U/L (0-41); Aspartate Amino Transferase 7527 U/L (0-40)
[2025-07-02] MEDS: vasopressin 40 UNIT/100 ML PREMIX 15 UNIT IV (14:14)
--- NOTE | 2025-07-02 14:15 | P.PN_ITS ---
Subjective 2 Subjective: - Overnight events noted - Patient was seen multiple times jaswinder barraza the morning - He has returned from the cardiac Graphic Technician, Impella in place - Cardiogenic shock, EF of 20 to 25%, pe ak to peak gradient 118, Impella in place, mean gradient 76, LVEDP 40, LV pressures 132/24, aortic pressure 79/47, mean of 60 - Currently on 4 pressors levo/epi/vaso/ dobutamine, MAP hovering around 65, on bicarbonate drip, 100% FiO2, converted to normal sinus rhythm, heart rate 80s - Spoke to cardiology, cardiology spoke to [facility] Dr. Rojas, patient's cardiogenic shock with severe critical aortic valve stenosis, patient has been accepted by CT surgery - Status post coronary angiography, find ings of critical aortic valve stenosis - Patient's family members are at bedsid e - Discussed with , daughters at [facility] h is critically ill, his prognosis is guarded, - Currently in cardiogenic shock, less l ikely secondary to severe critical aortic valve stenosis, with evidence of multiorgan failure, acute renal failure, shock liver, early evidence of DIC, acute respiratory failure - Discussed risks and benefits of transf er, morbidity and mortality associated with transfer, to tertiary level center, currently he is at high risk of transfer, but given his underlying cardiogenic shock and evidence of multiorgan failure, I do not believe that there will be a perfect situation for stability, - Discussed risk of decompensation and t [place], after discussing risk benefits patient is family, patient's voiced understanding, all questions answered, agreed to proceed - Examined throughout the morning - O2 requirements have decreased to 70%, PEEP of 5, tolerating volume 550 - Urine output lackluster at 150 mL - Weaned off dobutamine - Currently on levo/epi/vasopressin - Currently on bicarbonate drip - Pulmonary consulted, spoke to pulmonar y - Nephrology consulted, spoke to nephrol jameson - On fentanyl for sedation, patient does awaken, does follow commands, does track me around the room, Versed placed for additional sedation - Patient's perfusion has improved, tamika ling has improved, - Spoke to [facility] transfer center, spoke to their beveler, patient has been accepted awaiting bed - Most recent ABG pH 7.29, pCO2 129, bic arb 21.7, 70% FiO2 tidal volume 550 PEEP of 5 - Most recent BMP serum sodium 137, crea tinine 2.1, lactic acid 7.7, AST 7527, ALT 342 - Patient has been accepted at [facility] in [place], has a bed available, [facility] contacted - Discussed with family at bedside marge richardson he is down to 3 pressors, pressors are currently maximized, he is on 70% FiO2, his perfusion has improved, transportations still currently is associated with increased morbidity and mortality, increased risk of decompensation with transportation, discussed giving him more time versus transportation now, after discussing the risk and benefits of all options, patient's family voiced understanding, all questions answered, shared decision making, family wants to proceed with urgent transfer to tertiary level center - Patient was seen with [facility], is arnold lugo transported to [facility] Vitals/I&O/Wt Last Vital Signs Temp 97.7 F 07/02/25 12:00 Pulse 78 07/02/25 12:00 Resp 18 07/02/25 13:31 BP 90/72 07/02/25 12:00 Pulse Ox 91 07/02/25 13:31 O2 Del Method Nasal Cannula 07/01/25 21:31 FiO2 50 07/02/25 13:31 07/01/25 07/02/25 07/02/25 22:59 06:59 14:59 Intake Total 1050 / 1050 2049.003 / 3099.003 3107.053 / 3107.053 Output Total 150 / 150 Balance 900 / 900 2049.003 / 2949.003 3107.053 / 3107.053 Weight last 48 hrs Weight 77 kg Weight 75.296 kg Physical Exam 2 Const: COMMON NORMALS: no acute distress ORIENTATION/CONSCIOUSNESS: Yes awake and Yes oriented to person; not oriented to place and not oriented to time OTHER: Intubated, on sedation, - On sedation he is able to follow comma nds Eye: OTHER: Minimally reactive to light, does track Resp: COMMON NORMALS: normal respiratory effort, No retractions and No use of accessory muscles AUSCULTATION: crackles and wheezes Cardio: COMMON NORMALS: regular rate, regular rhythm, S1 normal heart sound present and S2 normal heart sound present RATE: regular rate RHYTHM: r egular rhythm HEART SOUNDS: S1 normal heart sound present and S2 normal heart sound present GI: COMMON NORMALS: Normal to inspection, nondistended, normoactive bowel sounds present, Soft to palpation and non-tender PALPATION: Yes Soft to palpation Extremity: COMMON NORMALS: no pedal edema Neuro: SENSORIUM/ORIENTATION: Yes oriented to person, No oriented to place and No oriented to time Urinary Catheter Management: Zavala: Cath Placed During This Visit: yes Urinary Catheter Time of Insertion: 04:31 Data 07/02/25 12:06 07/02/25 11:17 Micro: Microbiology 07/01/25 21:10 Blood Culture - Preliminary Blood SPECIMEN COLLECTED 07/01/25 15:04 Blood Culture - Preliminary Blood SPECIMEN COLLECTED A&P Assessment and plan 1. Acute systolic CHF (congestive heart failure): 2. Cardiogenic shock: 3. Acute kidney injury: 4. Hyperkalemia: 5. Transaminitis: 6. Lactic acidosis: 7. Shock: 8. Atrial fibrillation with rapid ventricular response: Plan: Acute hypoxic respiratory failure - Secondary to cardiogenic shock, bilateral pleural effusions Plan: - Currently intubated -PEEP at 5, tidal volume 550, 70% FiO2 - Fentanyl for sedation - Versed for sedation Acute critical aortic valve stenosis - With cardiogenic shock - With multiorgan failure - Cardiology consulted Date of procedure: 07/02/25 Pre-procedure diagnosis: Cardiogenic shock Post- procedure diagnosis: other (S/p Impella placement. Critical aortic stenosis) Procedure: Patent coronary arteries. S/p Impella placement through right common femoral artery access site Patient has critical aortic stenosis with mean gradient across aortic valve of 79mmHg and peak to peak gradient of 118mmHg. - Currently on 3 pressors - Currently on bicarbonate drip - Transferring to tertiary level center, [facility] for consideration of SAVR versus TAVR versus balloon valvuloplasty Atrial fibrillation with rapid ventricular response - Currently on amiodarone drip - Currently on heparin drip Acute systolic heart failure -With severe critical aortic valve stenosis Plan -Currently on 3 pressors - With albumin therapy - Cardiology consulted Cardiogenic Shock - component of A-fib with RVR - component of cardiogenic shock with acute systolic CHF -Critical aortic valve stenosis - Will monitor in ICU, - Levophed to maintain MAP greater than 65 - On vasopressin - On Levophed - On epi drip - Off dobutamine Sepsis? -With hypotension concern for septic shock? - Does have leukocytosis - Source, UA positive for urinary tract infection -Blood cultures ordered - CT angiogram of the chest ordered no evidence of pulmonary embolism - Continue meropenem Shock liver - With hyperbilirubinemia - Liver ultrasound - Acute hep panel, hepatitis C antibody positive - US/US abdomen complete* 29675 IMPRESSION: 1. Findings above concerning for acute cholecystitis with biliary sludge. There is also a 3 mm sessile can be followed up in 6 months' time if the gallbladder is not decided by the surgical team to be taken up. 2. Otherwise unremarkable abdominal ultrasound. - Likely multifactorial congestive hepatopathy from acute heart failure, cardiogenic shock Hepatitis C antibody positive Lactic acidosis - Levophed to maintain MAP at 65 Hyperkalemia monitor - Insulin, D50, telemeter monitoring, calcium gluconate - Repeat BMP NSTEMI - With complaints of chest pain - Serial EKGs, serial troponins, telemetry monitoring - Aspirin, statin - Cardiac echo CONCLUSIONS 1. Normal LV cavity size. Moderate global hypokinesis of the left ventricle with EF of 32% 2. Right ventricle not well visualized. Upper limits of normal RV cavity size. Mildly reduced right ventricular systolic function. 3. This echocardiogram was ordered as a limited study. Ventricular function assessment is limited due to atrial fibrillation with rapid ventricular response. Heart rate was 132 bpm at time of test. - Heparin drip ANGELO -Secondary to cardiogenic shock, cardiorenal syndrome - Ultrasound abdomen including kidneys no acute findings Full code Heparin drip for DVT prophylaxis PDMP PDMP Reviewed: Not Reviewed Attestations 2 Medical Necessity Statement*: Patient requires hospitalization for cardiogenic shock, severe critical aortic valve stenosis, NSTEMI, respiratory failure, acute renal failure, shock liver Procedures Arterial Line Size (Gauge): 20 Coding Level of Care Code Critical Care >/= 30 minutes Critical care time (in minutes): 60 The high probability of a clinically significant, sudden or life threatening deterioration, as referenced in this documentation, required my full and direct attention, intervention and personal management. The critical care time shown is in addition to time spent performing any reported separately billable procedures and includes the following: [x] Data and vital sign review and interpretation [x ] Patient assessment, examination and intervention [x] Medication orders and management [x] Patient/Family updates as able [x] Care Coordination and Documentation. Diagnoses Acute systolic CHF (congestive heart failure) I50.21 Cardiogenic shock R57.0 Acute kidney injury N17.9 Hyperkalemia E87.5 Transaminitis R74.01 Lactic acidosis E87.20 Shock R57.9 Atrial fibrillation with rapid ventricular response I48.91 Sepsis Event Note Evaluation Reason for ruling out sepsis: Cardiogenic shock Initial hypotension due to sepsis/infection: SBP < 90 mmHg Persistent hypotension due to sepsis/infection: SBP < 90 mmHg Possible source: genitourinary Focused Exam Vital Signs Temp Pulse Resp BP Pulse Ox FiO2 07/02/25 13:31 18 91 50 07/02/25 12:56 20 H 95 70 07/02/25 12:00 97.7 F 78 90/72 94 07/02/25 11:55 78 90/72 94 07/02/25 11:50 78 90/72 94 07/02/25 11:45 78 90/72 95 07/02/25 11:40 78 90/72 95 07/02/25 11:35 78 90/72 95 07/02/25 11:30 77 93/68 95 07/02/25 11:25 78 93/68 96 07/02/25 11:20 77 93/68 96 07/02/25 11:15 77 89/69 97 07/02/25 11:10 77 89/69 98 07/02/25 11:05 77 89/69 98 07/02/25 11:00 77 90/66 98 07/02/25 10:55 77 90/66 99 07/02/25 10:50 77 90/66 99 07/02/25 10:45 76 85/67 99 07/02/25 10:40 77 85/67 99 07/02/25 10:35 76 85/67 100 07/02/25 10:30 76 85/69 100 07/02/25 10:25 75 85/69 100 07/02/25 10:20 76 85/69 100 07/02/25 10:15 76 87/66 07/02/25 10:10 76 87/66 07/02/25 10:05 76 87/66 07/02/25 10:00 76 89/66 98 07/02/25 09:55 76 89/66 99 07/02/25 09:50 75 89/66 99 07/02/25 09:45 76 87/64 99 07/02/25 09:40 76 87/64 99 07/02/25 09:35 76 87/64 99 07/02/25 09:30 76 88/62 99 07/02/25 09:25 76 88/62 100 07/02/25 09:20 75 88/62 100 07/02/25 09:15 76 97/68 99 07/02/25 09:10 77 97/68 99 07/02/25 09:05 78 97/68 99 07/02/25 09:00 81 91/66 99 07/02/25 08:55 82 91/66 07/02/25 08:50 82 91/66 66 L 07/02/25 08:45 85 94/63 68 L 07/02/25 08:40 81 94/63 72 L 07/02/25 08:37 20 H 70 07/02/25 08:35 81 94/63 99 07/02/25 08:30 81 93/60 07/02/25 08:25 81 93/60 07/02/25 08:20 93 93/60 07/02/25 08:15 80 88/63 07/02/25 08:10 97.6 F 80 20 H 88/63 07/02/25 08:05 79 88/63 07/02/25 08:00 79 92/66 07/02/25 08:00 100 07/02/25 07:55 78 92/66 07/02/25 07:50 78 92/66 07/02/25 07:46 20 H 100 07/02/25 07:45 78 86/69 07/02/25 07:40 78 86/69 100 07/02/25 07:35 78 86/69 100 07/02/25 07:30 77 92/67 07/02/25 07:25 79 92/67 07/02/25 07:20 78 92/67 07/02/25 07:18 78 07/02/25 05:30 82/57 07/02/25 05:25 82/57 07/02/25 05:20 82/57 07/02/25 05:15 86 82/57 98 07/02/25 05:10 86 83/60 100 07/02/25 05:05 86 86/56 100 07/02/25 05:00 87 85/56 100 07/02/25 04:55 86 81/60 100 07/02/25 04:50 86 80/54 100 07/02/25 04:45 87 23 H 84/59 99 07/02/25 04:40 87 23 H 85/60 92 07/02/25 04:35 88 20 H 86/59 07/02/25 04:30 87 20 H 89/61 07/02/25 04:25 84 16 85/61 07/02/25 04:20 85 16 79 L 07/02/25 04:15 86 14 61/27 89 L 07/02/25 04:10 85 14 80/60 90 07/02/25 04:05 86 15 92/30 90 07/02/25 04:00 85 16 88/62 07/02/25 04:00 100 07/02/25 03:55 85 19 H 80/57 07/02/25 03:50 84 12 86/51 07/02/25 03:45 85 18 82/57 07/02/25 03:40 86 18 88/22 07/02/25 03:35 86 13 93/61 07/02/25 03:30 87 21 H 101/57 07/02/25 03:25 82 14 07/02/25 03:20 79 15 07/02/25 03:20 60 07/02/25 03:15 83 14 07/02/25 03:10 84 14 67/26 07/02/25 03:05 85 17 07/02/25 03:00 86 16 49/24 07/02/25 02:55 87 14 77/31 Respiratory exam: Present wheezes Cardiovascular exam: Present tachycardia Capillary refill: < 3 Seconds Peripheral pulse strength: 1+ Faint (Early in the morning, bilateral lower extremity pulses not palpable, as perfusion improved, pulses are nonpalpable, pulses are dopplerable, mottling has resolved) Peripheral pulse location: Pedal Skin exam: pale Date exam was performed: 07/02/25 Time exam was performed: 14:54 Problem List 1. Acute systolic CHF (congestive heart failure): Status: Acute 2. Cardiogenic shock: Status: Acute 3. Acute kidney injury: Status: Acute 4. Hyperkalemia: Status: Acute 5. Transaminitis: Status: Acute 6. Lactic acidosis: Status: Acute 7. Shock: Status: Acute 8. Atrial fibrillation with rapid ventricular response: Status: Acute
--- NOTE | 2025-07-02 15:10 | PC.NURSE ---
Addendum entered by Anton Ayala RN 07/02/25 15:11: waste witnessed by this nurse Original Note: Wasted 87.5mL of fentanyl witnessed by Anton RESTREPO
[2025-07-03 15:19] LABS: HEP C RNA Viral Load Quant 6.99 Log IU/mL (NOT DETECTED); HEP C RNA Viral Load Quant 9860000 IU/mL (NOT DETECTED)
--- NOTE | 2025-07-04 08:21 | PM.TDS ---
Transfer Summary Providers Date of Admission: 07/01/25 18:38 Date of Discharge/Transfer: 07/15/25 Attending Provider at Admission: Dar Lynne MD Attending Provider at Transfer: Dar Lynne MD Transfer Plans: Anticipated date of transfer: 07/15/25. Diagnoses at Discharge Discharge Diagnosis 1. Acute hypoxic respiratory failure: 2. Acute systolic CHF (congestive heart failure): 3. Cardiogenic shock: 4. Severe aortic stenosis: Reason for Visit Reason for Visit Afib RVR Chest Pain, SOB Hospital Course Hospital Course All Rae is a 55 year old male with no known past medical history, current smoker, who presents [facility] due to chest pain and shortness of breath. Currently patient is sitting up in bed, tells me that he cannot lie flat because of feeling short of breath, chest discomfort and chest palpitations. Patient tells me for the last few days he has not been feeling well, has had weakness, fatigue, short of breath with exertion, progressing to shortness of breath at rest, with chest palpitations, he is also complains of night sweats, no weight loss, does have a cough, no hemoptysis, no calf pain or calf swelling, no headache, no blurry vision, he did travel to [place] recently and then to [place], no known sick contacts, Patient was admitted to [facility] for acute hypoxic respiratory failure secondary to cardiogenic shock, bilateral pleural effusion, with acute critical aortic valve stenosis, with acute systolic heart failure, shock liver, acute renal failure, NSTEMI - Overnight events noted - Patient was seen multiple times throughout the morning - He has returned from the cardiac Cephalometric Analyst, Impella in place - Cardiogenic shock, EF of 20 to 25%, peak to peak gradient 118, Impella in place, mean gradient 76, LVEDP 40, LV pressures 132/24, aortic pressure 79/47, mean of 60 - Currently on 4 pressors levo/epi/vaso/dobutamine, MAP hovering around 65, on bicarbonate drip, 100% FiO2, converted to normal sinus rhythm, heart rate 80s - Spoke to cardiology, cardiology spoke to C Dr. Rojas, patient's cardiogenic shock with severe critical aortic valve stenosis, patient has been accepted by CT surgery - Status post coronary angiography, findings of critical aortic valve stenosis - Patient's family members are at bedside - Discussed with , daughters at All is critically ill, his prognosis is guarded, - Currently in cardiogenic shock, less likely secondary to severe critical aortic valve stenosis, with evidence of multiorgan failure, acute renal failure, shock liver, early evidence of DIC, acute respiratory failure - Discussed risks and benefits of transfer, morbidity and mortality associated with transfer, to tertiary level center, currently he is at high risk of transfer, but given his underlying cardiogenic shock and evidence of multiorgan failure, I do not believe that there will be a perfect situation for stability, - Discussed risk of decompensation and transport, after discussing risk benefits patient is family, patient's voiced understanding, all questions answered, agreed to proceed - Examined throughout the morning - O2 requirements have decreased to 70%, PEEP of 5, tolerating volume 550 - Urine output lackluster at 150 mL - Weaned off dobutamine - Currently on levo/epi/vasopressin - Currently on bicarbonate drip - Pulmonary consulted, spoke to pulmonary - Nephrology consulted, spoke to nephrology - On fentanyl for sedation, patient does awaken, does follow commands, does track me around the room, Versed placed for additional sedation - Patient's perfusion has improved, mottling has improved, - Spoke to [facility] transfer center, [facility] to their [facility], patient has been accepted awaiting bed - Most recent ABG pH 7.29, pCO2 129, bicarb 21.7, 70% FiO2 tidal volume 550 PEEP of 5 - Most recent BMP serum sodium 137, creatinine 2.1, lactic acid 7.7, AST 7527, ALT 342 - Patient has been accepted at [facility], has a bed available, [facility] contacted - Discussed with family at bedside currently he is down to 3 pressors, pressors are currently maximized, he is on 70% FiO2, his perfusion has improved, transportations still currently is associated with increased morbidity and mortality, increased risk of decompensation with transportation, discussed giving him more time versus transportation now, after discussing the risk and benefits of all options, patient's family voiced understanding, all questions answered, shared decision making, family wants to proceed with urgent transfer to tertiary level center -Patient was weaned down to 2 pressors, 70% FiO2, - Patient was seen with [facility], is being transported to [facility] Acute hypoxic respiratory failure - Secondary to cardiogenic shock, bilateral pleural effusions Plan: - Currently intubated -PEEP at 5, tidal volume 550, 70% FiO2 - Fentanyl for sedation - Versed for sedation Acute critical aortic valve stenosis - With cardiogenic shock - With multiorgan failure - Cardiology consulted Date of procedure: 07/02/25 Pre-procedure diagnosis: Cardiogenic shock Post-procedure diagnosis: other (S/p Impella placement. Critical aortic stenosis) Procedure: Patent coronary arteries. S/p Impella placement through right common femoral artery access site Patient has critical aortic stenosis with mean gradient across aortic valve of 79mmHg and peak to peak gradient of 118mmHg. - Currently on 3 pressors - Currently on bicarbonate drip - Transferring to tertiary level center, [facility] for consideration of SAVR versus TAVR versus balloon valvuloplasty Atrial fibrillation with rapid ventricular response - Currently on amiodarone drip - Currently on heparin drip Acute systolic heart failure -With severe critical aortic valve stenosis Plan -Currently on 3 pressors - With albumin therapy - Cardiology consulted Cardiogenic Shock - component of A-fib with RVR - component of cardiogenic shock with acute systolic CHF -Critical aortic valve stenosis - Will monitor in ICU, - Levophed to maintain MAP greater than 65 - On vasopressin - On Levophed - On epi drip - Off dobutamine Sepsis? -With hypotension concern for septic shock? - Does have leukocytosis - Source, UA positive for urinary tract infection -Blood cultures ordered - CT angiogram of the chest ordered no evidence of pulmonary embolism - Continue meropenem Shock liver - With hyperbilirubinemia - Liver ultrasound - Acute hep panel, hepatitis C antibody positive - US/US abdomen complete* [id number] IMPRESSION: 1. Findings above concerning for acute cholecystitis with biliary sludge. There is also a 3 mm sessile can be followed up in 6 months' time if the gallbladder is not decided by the surgical team to be taken up. 2. Otherwise unremarkable abdominal ultrasound. - Likely multifactorial congestive hepatopathy from acute heart failure, cardiogenic shock Hepatitis C antibody positive Lactic acidosis - Levophed to maintain MAP at 65 Hyperkalemia monitor - Insulin, D50, telemeter monitoring, calcium gluconate - Repeat BMP NSTEMI - With complaints of chest pain - Serial EKGs, serial troponins, telemetry monitoring - Aspirin, statin - Cardiac echo CONCLUSIONS 1. Normal LV cavity size. Moderate global hypokinesis of the left ventricle with EF of 32% 2. Right ventricle not well visualized. Upper limits of normal RV cavity size. Mildly reduced right ventricular systolic function. 3. This echocardiogram was ordered as a limited study. Ventricular function assessment is limited due to atrial fibrillation with rapid ventricular response. Heart rate was 132 bpm at time of test. - Heparin drip ANGELO -Secondary to cardiogenic shock, cardiorenal syndrome - Ultrasound abdomen including kidneys no acute findings Full code Heparin drip for DVT prophylaxis Physical Exam Const: GENERAL APPEARANCE: ill appearing OTHER: Intubated, sedated on mechanical ventilation Resp: COMMON NORMALS: normal respiratory effort, No retractions, No use of accessory muscles and clear to auscultation bilaterally AUSCULTATION: clear to auscultation bilaterally Cardio: COMMON NORMALS: regular rate, regular rhythm, S1 normal heart sound present and S2 normal heart sound present RATE: regular rate RHYTHM: regular rhythm HEART SOUNDS: S1 normal heart sound present and S2 normal heart sound present GI: COMMON NORMALS: Normal to inspection, nondistended, normoactive bowel sounds present and non-tender Extremity: COMMON NORMALS: no pedal edema Urinary Catheter Management: Zavala: Cath Placed During This Visit: yes Urinary Catheter Time of Insertion: 04:31 TS Data Studies Completed and Pending Pending at discharge Category Date Time Status Blood Culture Stat Lab 07/01/25 21:10 Results Fibrinogen Degradation Product Routine Lab 07/02/25 08:36 Received Sputum Culture and Gram Stain Routine Lab 07/02/25 13:20 Results Completed Studies During Hospitalization Category Date Time Status CT angio chest PE protcl [id number] Stat Cat Scan 07/01/25 17:35 Completed [employer] request for service Routine Exams 07/02/25 05:07 Completed XR chest 1V portable [id number] Stat Exams 07/01/25 14:57 Completed XR chest 1V portable [id number] Stat Exams 07/02/25 01:40 Completed XR chest 1V portable [id number] Stat Exams 07/02/25 02:40 Completed CV. echo limited [id number] Stat Ultrasound 07/01/25 16:27 Completed US abdomen complete* [id number] Stat Ultrasound 07/01/25 17:44 Completed Laboratory Last Values WBC 20.23 10^3/uL (3.29-11.43) H 07/02/25 12:06 RBC 3.78 10^6/uL (3.85-5.65) L 07/02/25 12:06 Hgb 11.30 g/dL (11.27-16.99) 07/02/25 12:06 Hct 34.1 % (37-53) L 07/02/25 12:06 MCV 90.2 fl (82-101) 07/02/25 12:06 MCH 29.9 pg (27-33) 07/02/25 12:06 MCHC 33.1 g/dL (30-55) 07/02/25 12:06 RDW 14.1 % (12.1-15.1) 07/02/25 12:06 Plt Count 102 10^3/cmm (157-399) L 07/02/25 12:06 MPV 11.0 fL (7.4-10.4) H 07/02/25 12:06 Neut % (Auto) 92.3 % 07/02/25 12:06 Lymph % (Auto) 3.3 % 07/02/25 12:06 [place] % (Auto) 2.9 % 07/02/25 12:06 Eos % (Auto) 0.0 % 07/02/25 12:06 Baso % (Auto) 0.1 % 07/02/25 12:06 Neut # (Auto) 18.68 10^3/uL (1.8-7.7) H 07/02/25 12:06 Lymph # (Auto) 0.7 10^3/uL (0.8-4.8) L 07/02/25 12:06 [place] # (Auto) 0.6 10^3/uL (0.2-0.9) 07/02/25 12:06 Eos # (Auto) 0.0 10^3/uL (0.0-0.8) 07/02/25 12:06 Baso # (Auto) 0.0 10^3/uL (0.0-0.1) 07/02/25 12:06 Nucleated RBC % (auto) 0.2 % 07/02/25 12:06 Nucleated RBCs # 0.0 /100WBC 07/02/25 12:06 PT 29.50 SECONDS (12.1-14.9) H 07/02/25 10:47 INR 2.62 (0.8-1.2) H 07/02/25 10:47 APTT 72.9 SECONDS (23.9-36.7) H 07/02/25 08:04 APTT 72.9 SECONDS (23.9-36.7) H D 07/02/25 08:04 Fibrinogen 238 mg/dL (174-498) 07/02/25 08:04 D-Dimer 15.65 ug/mLFEU (0-0.59) H 07/02/25 08:04 Specimen Type Arterial 07/02/25 13:00 Sample Site Art line 07/02/25 13:00 ABG pH 7.29 (7.35-7.45) L 07/02/25 13:00 ABG pCO2 45.0 mmHg (35-45) 07/02/25 13:00 ABG pO2 129.0 mmHg (80.0-100.0) H 07/02/25 13:00 ABG PO2/FiO2 Ratio 184 07/02/25 13:00 ABG HCO3 21.7 mmol/L (22-26) L 07/02/25 13:00 ABG O2 Saturation 99.1 07/02/25 13:00 ABG Base Excess -4.8 mmol/L (-2.0-2.0) L 07/02/25 13:00 Edd Test Pos 07/02/25 13:00 A-a O2 Gradient 45.6 mmHg (5-10) H 07/02/25 13:00 Hematocrit 35.8 % (42-52) L 07/02/25 13:00 Hgb O2 Saturation 97.0 % (95-100) 07/02/25 13:00 Carboxyhemoglobin 0.9 %THgb (0.4-20.1) 07/02/25 13:00 Methemoglobin 1.2 % (0.4-1.5) 07/02/25 13:00 Total Hemoglobin 11.7 g/dL (14-18) L 07/02/25 13:00 Sodium 128.0 mmol/L (131-143) L 07/02/25 13:00 Potassium 4.2 mmol/L (3.5-5.0) 07/02/25 13:00 Glucose 372.0 mg/dL (70-115) H 07/02/25 13:00 Ionized Calcium 0.9 mmol/L (1.1-1.4) L 07/02/25 13:00 Respiration Rate 20.0 % 07/02/25 13:00 O2 Delivery Device Vent 07/02/25 13:00 FiO2 70.0 % 07/02/25 13:00 Tidal Volume .55 07/02/25 13:00 PEEP 5.0 cmH20 07/02/25 13:00 Spindle Setter [place] Hens[place] 07/02/25 13:00 Sodium Cancelled 07/02/25 12:06 Potassium Cancelled 07/02/25 12:06 Chloride Cancelled 07/02/25 12:06 Carbon Dioxide Cancelled 07/02/25 12:06 Anion Gap Cancelled 07/02/25 12:06 BUN Cancelled 07/02/25 12:06 Creatinine Cancelled 07/02/25 12:06 GFR Calculation Cancelled 07/02/25 12:06 Glucose Cancelled 07/02/25 12:06 POC Glucose 164 mg/dL (70-110) H 07/02/25 04:51 Estimat Average Glucose 108 07/01/25 15:04 Hemoglobin A1c 5.4 % (4.0-6.0) 07/01/25 15:04 Calculated Osmolality Cancelled 07/02/25 12:06 Lactic Acid 11.1 mmol/L (0.5-2.2) H* 07/02/25 08:04 Lactic Acid (Sepsis) 3.4 mmol/L (0.5-2.2) H 07/01/25 17:26 Lactate 7.7 mmol/L (0.5-2.2) H* 07/02/25 10:47 Calcium Cancelled 07/02/25 12:06 Phosphorus 5.9 mg/dL (2.5-4.5) H 07/02/25 03:10 Magnesium 2.2 mg/dL (1.7-2.3) 07/02/25 03:10 Total Bilirubin Cancelled 07/02/25 12:06 GGT 27 U/L (8-61) 07/01/25 16:46 AST Cancelled 07/02/25 12:06 ALT Cancelled 07/02/25 12:06 Alkaline Phosphatase Cancelled 07/02/25 12:06 Troponin T Baseline 54 ng/L (0-15) H 07/01/25 15:04 Troponin T 120 Minute 54.61 ng/L (0-15) H 07/01/25 16:46 Delta Troponin T 0.61 ABS# (0-10) 07/01/25 16:46 Troponin T Hi Sens 6Hr 77.99 ng/L (0-15) H 07/01/25 21:07 Troponin T Hi Sens 6Hr Delta 23.99 ng/L (0-12) H* 07/01/25 21:07 C-Reactive Protein 37.4 mg/L (0.0-4.9) H 07/01/25 15:04 NT-Pro-B Natriuret Pep > 27984 pg/mL (0-125) H 07/02/25 03:10 Total Protein Cancelled 07/02/25 12:06 Albumin Cancelled 07/02/25 12:06 Globulin Cancelled 07/02/25 12:06 Triglycerides 99 mg/dL (0-150) 07/01/25 15:04 Cholesterol 187 mg/dL (0-200) 07/01/25 15:04 LDL Cholesterol, Calc 139 mg/dL (50-129) H 07/01/25 15:04 HDL Cholesterol 28 mg/dL (60-100) L 07/01/25 15:04 LDL/HDL Ratio 4.96 RATIO (0.00-3.22) H 07/01/25 15:04 Cholesterol/HDL Ratio 6.68 mg/dL (1.0-5.00) H 07/01/25 15:04 Lipase 23 U/L (13-60) 07/01/25 15:04 Procalcitonin 0.12 ng/mL (0-0.5) 07/01/25 15:04 TSH 2.65 uIU/mL (0.27-4.20) 07/01/25 15:04 Urine Color Coleman (Yellow) A 07/01/25 22:23 Urine Appearance Cloudy (CLEAR) A 07/01/25 22:23 Urine pH 5.0 (5-7) 07/01/25 22:23 Ur Specific [place] 1.061 (1.005-1.030) H 07/01/25 22:23 Urine Protein 2+ (Negative) A 07/01/25 22:23 Urine Glucose (UA) Negative (Normal) 07/01/25 22:23 Urine Ketones Trace (Negative) 07/01/25 22: Urine Blood 1+ (Negative) A 07/01/25 22:23 Urine Nitrate Positive (Negative) A 07/01/25 22:23 Urine Bilirubin 2+ (Negative) H 07/01/25 22:23 Urine Urobilinogen 1.0 mg/dL (Negative) 07/01/25 22:23 Ur Leukocyte Esterase Trace (Negative) A 07/01/25 22:23 Urine RBC 0-2 /hpf (0-2) 07/01/25 22:23 Urine WBC 0-5 /hpf (0-5) 07/01/25 22:23 Ur Squamous Epith Cells 0-5 /hpf (0-5) 07/01/25 22:23 Amorphous Sediment Not Reportable 07/01/25 22:23 Urine Bacteria None seen /hpf (NONE) 07/01/25 22: Hyaline Casts 148.53 /lpf 07/01/25 22:23 Urine Opiates Screen Negative ng/mL (Negative) 07/01/25 22:23 Ur Barbiturates Screen Negative ng/mL (Negative) 07/01/25 22:23 Ur Phencyclidine Scrn Negative ng/mL (Negative) 07/01/25 22:23 Ur Amphetamines Screen Negative ng/mL (Negative) 07/01/25 22:23 U Benzodiazepines Scrn Negative ng/mL (Negative) 07/01/25 22: Urine Cocaine Screen Negative ng/mL (Negative) 07/01/25 22:23 U Marijuana (THC) Screen Positive ng/mL (Negative) H 07/01/25 22:23 Hepatitis A IgM Ab Non-reactive (Nonreactive) 07/01/25 16:04 Hep Bs Antigen Non-reactive (Nonreactive) 07/01/25 16:04 Hep B Core IgM Ab Non-reactive (Nonreactive) 07/01/25 16:04 Hepatitis C Antibody Reactive (Nonreactive) H 07/01/25 16:04 HCV RNA (PCR) IUs/ml 6.99 Log IU/mL (NOT DETECTED) H 07/01/25 21:24 HCV RNA (PCR) IU log10 [id number] IU/mL (NOT DETECTED) H 07/01/25 21:24 HIV 1&2 Ab & HIV 1 Ag Non-reactive (Non-Reactiv) 07/01/25 15:04 HIV 1&2 Antibody Non-reactive (Non-Reactiv) 07/01/25 15:04 Radiology Impressions Chest CTA 07/01/25 17:35 IMPRESSION: Findings of pulmonary interstitial edema with bilateral moderate-sized pleural effusions. Changes in accordance with advanced emphysema upper lobe predominant. Dense coarse calcification on the aortic valve correlate to exclude aortic valve stenosis. No acute or chronic pulmonary embolism. No aneurysm. COMMENTS: The presence of pulmonary emphysema on CT is an independent risk factor for lung cancer. In the absence of a history or active diagnosis of lung cancer, it is recommended that this patient with emphysema be evaluated for enrollment in a low dose CT lung cancer screening program. Abdomen Ultrasound 07/01/25 17:44 IMPRESSION: 1. Findings above concerning for acute cholecystitis with biliary sludge. There is also a 3 mm sessile can be followed up in 6 months' time if the gallbladder is not decided by the surgical team to be taken up. 2. Otherwise unremarkable abdominal ultrasound. Chest X-Ray 07/02/25 02:40 IMPRESSION: 1. ETT with the tip 2.4 cm from the daisha. Recommend retracting approximately 2-3 cm. 2. NG tube and central line appropriately positioned. Recent Clincial Data Last Vital Signs Temp 97.6 F 07/02/25 15:18 Pulse 80 07/02/25 15:18 Resp 16 07/02/25 15:18 BP 80/68 07/02/25 15:18 Pulse Ox 91 07/02/25 15:18 O2 Del Method Nasal Cannula 07/01/25 21:31 FiO2 50 07/02/25 13:31 Intake & Output/Weight 07/02/25 07/03/25 07/04/25 07/05/25 06:59 06:59 06:59 06:59 Intake Total 3099.003 / 3099.003 3119.553 / 3119.553 Output Total 150 / 150 Balance 2949.003 / 2949.003 3119.553 / 3119.553 Weight 77 kg Vitals Last Vital Signs Temp 97.6 F 07/02/25 15:18 Pulse 80 07/02/25 15:18 Resp 16 07/02/25 15:18 BP 80/68 07/02/25 15:18 Pulse Ox 91 07/02/25 15:18 O2 Del Method Nasal Cannula 07/01/25 21:31 FiO2 50 07/02/25 13:31 TS Medications Medications Discontinued Medications Acetaminophen (Acetaminophen 325 Mg Tablet) 650 mg PO Q6H PRN PRN Reason: Mild/Mod Pain Or Temp >/= 101 Last Admin: 07/02/25 01:40 Dose: 650 mg Aspirin (Aspirin 81 Mg Ec Tablet) 81 mg PO DAILY [facility] Last Admin: 07/02/25 07:13 Dose: Not Given Atorvastatin Calcium (Atorvastatin 40 Mg Tablet) 80 mg PO BEDTIME [facility] Last Admin: 07/01/25 21:54 Dose: 80 mg Calcium Gluconate (Calcium Gluconate 0.1 Gm/Ml 10% Sdv 10ml) Confirm Administered Dose 1 gm .ROUTE .STK-MED ONE Stop: 07/02/25 04:05 Calcium Gluconate (Calcium Gluconate 0.1 Gm/Ml 10% Sdv 10ml) Confirm Administered Dose 1 gm .ROUTE .STK-MED ONE Stop: 07/02/25 04:07 Last Admin: 07/02/25 06:05 Dose: Not Given Calcium Gluconate (Calcium Gluconate 0.1 Gm/Ml 10% Sdv 10ml) 1 gm IVP ONCE ONE Stop: 07/02/25 06:00 Last Admin: 07/02/25 04:10 Dose: 1 gm Digoxin (Digoxin 250 Mcg/Ml Inj 2 Ml) 250 mcg IVP NOW ONE Stop: 07/01/25 18:16 Last Admin: 07/01/25 19:43 Dose: 250 mcg Diltiazem HCl (Diltiazem 5 Mg/Ml Sdv 5 Ml) 20 mg IVP ONCE ONE Stop: 07/01/25 15:02 Last Admin: 07/01/25 15:39 Dose: Not Given Epinephrine HCl (Epinephrine 1 Mg/Ml Inj) Confirm Administered Dose 3 mg .ROUTE .STK-MED ONE Stop: 07/02/25 03:39 Etomidate (Etomidate 2 Mg/Ml Inj Sdv 10 Ml) 25 mg IVP NOW ONE Stop: 07/02/25 02:34 Last Admin: 07/02/25 02:33 Dose: 25 mg Furosemide (Furosemide 10 Mg/Ml Sdv 4ml) 40 mg IVP Q12H [facility] Last Admin: 07/01/25 21:53 Dose: 40 mg Furosemide (Furosemide 10 Mg/Ml Sdv 4ml) 40 mg IVP ONCE ONE Stop: 07/02/25 01:41 Last Admin: 07/02/25 02:05 Dose: 40 mg Heparin Sodium (Porcine) (Heparin 5,000 Unit/Ml Inj 1 Ml) 0 unit IVP PRN PRN; Protocol PRN Reason: Heparin Weight Based Protocol -Subsequent Bolus Heparin Sodium (Porcine) (Heparin 5,000 Unit/Ml Inj 1 Ml) 0 unit IVP ONCE ONE; Protocol Stop: 07/01/25 16:27 Last Increment: 07/01/25 17:21 Dose: 3,800 unit Incremental Dosing Total Given: 3,800 unit Heparin Sodium (Porcine) (Heparin 5,000 Unit/Ml Inj 1 Ml) Confirm Administered Dose 10,000 unit .ROUTE .STK-MED ONE Stop: 07/02/25 05:08 DILTIAZEM HCL/D5W (Cardizem) 125 mg in 125 mls @ 0 mls/hr IV .Q0M JAY; Protocol AMIODARONE HCL/D5W (Amiodarone 900 Mg/500 Ml-D5w) 900 mg in 500 mls @ 0 mls/hr IV .Q0M JAY; Protocol Last Admin: 07/02/25 13:32 Dose: 0.5 mg/min, 16.67 mls/hr Sodium Chloride (Sodium Chloride 0.9%) 1,000 mls @ 999 mls/hr IV .Q1H1M ONE Stop: 07/01/25 16:24 Last Infusion: 07/01/25 20:54 Dose: Infused Amiodarone HCl/Dextrose (Nexterone) 150 mg in 100 mls @ 400 mls/hr IV ONCE ONE Stop: 07/01/25 15:44 Last Infusion: 07/02/25 11:35 Dose: Infused Heparin Sodium/Sodium Chloride (Heparin Drip) 25,000 unit in 500 mls @ 0 mls/hr IV CONT JAY; Protocol Last Titration: 07/02/25 07:38 Dose: 14.61 unit/kg/hr, 22 mls/hr Calcium Gluconate/Sodium Chloride (Calcium Gluconate 0.9% Nacl) 1 gm in 50 mls @ 50 mls/hr IV ONCE ONE Stop: 07/01/25 18:43 Last Infusion: 07/01/25 20:54 Dose: Infused Dextrose (D10w) 125 mls @ 750 mls/hr IV PRN PRN PRN Reason: HYPOGLYCEMIA Last Infusion: 07/02/25 06:23 Dose: Infused Amiodarone HCl/Dextrose (Nexterone) 150 mg in 100 mls @ 400 mls/hr IV ONCE ONE Stop: 07/01/25 18:30 Last Admin: 07/02/25 05:57 Dose: Not Given Albumin Human (Albumin) 25 g in 100 mls @ 60 mls/hr IV Q12H JAY Last Infusion: 07/02/25 01:19 Dose: Infused Norepinephrine Bitartrate (Levophed) 4 mg in 250 mls @ 0 mls/hr IV .Q0M JAY; Protocol Last Admin: 07/02/25 13:26 Dose: 5.33 mcg/min, 20 mls/hr Vancomycin HCl 1,000 mg/ (Sodium Chloride) 250 mls @ 250 mls/hr IV Q12H JAY Vancomycin HCl (Vancocin) 2,000 mg in 400 mls @ 200 mls/hr IV ONCE ONE Stop: 07/01/25 23:29 Last Infusion: 07/02/25 07:48 Dose: Infused Fentanyl (Sublimaze) 1,000 mcg in 100 mls @ 0 mls/hr IV .Q0M JAY; Protocol Last Titration: 07/02/25 15:10 Dose: Infused Etomidate (Amidate) Confirm Administered Dose 20 mls @ as directed .ROUTE .STK-MED ONE Stop: 07/02/25 02:18 Fentanyl (Sublimaze) Confirm Administered Dose 1,000 mcg in 100 mls @ as directed .ROUTE .STK-MED ONE Stop: 07/02/25 02:21 Dobutamine HCl/Dextrose (Dobutamine Drip) Confirm Administered Dose 500 mg in 250 mls @ as directed .ROUTE .STK-MED ONE Stop: 07/02/25 02:30 Dobutamine HCl/Dextrose (Dobutamine Drip) 500 mg in 250 mls @ 0 mls/hr IV .Q0M JAY; Protocol Last Titration: 07/02/25 08:52 Dose: 0 mcg/kg/min, 0 mls/hr Sodium Chloride (Sodium Chloride 0.9%) 500 mls @ 999 mls/hr IV .Q31M STA Stop: 07/02/25 03:26 Sodium Chloride (Sodium Chloride 0.9%) 1,000 mls @ 999 mls/hr IV .Q1H1M ONE Stop: 07/02/25 04:15 Last Infusion: 07/02/25 04:45 Dose: Infused Sodium Bicarbonate 150 meq/ (Dextrose) 1,150 mls @ 200 mls/hr IV .Q5H45M [facility] Last Admin: 07/02/25 09:31 Dose: 200 mls/hr Dextrose (D5w) Confirm Administered Dose 1,000 mls @ as directed .ROUTE .STK-MED ONE Stop: 07/02/25 03:21 Epinephrine HCl 2.5 mg/ Sodium (Chloride) 252.5 mls @ 0 mls/hr IV .Q0M JAY; Protocol Last Titration: 07/02/25 10:36 Dose: Infused Sodium Chloride (Sodium Chloride 0.9%) Confirm Administered Dose 250 mls @ as directed .ROUTE .STK-MED ONE Stop: 07/02/25 03:39 Calcium Gluconate/Sodium Chloride (Calcium Gluconate 0.9% Nacl) 1 gm in 50 mls @ 100 mls/hr IV Q30M JAY Stop: 07/02/25 05:14 Dextrose (D10w) Confirm Administered Dose 250 mls @ as directed .ROUTE .STK-MED ONE Stop: 07/02/25 04:08 Vasopressin (Vasostrict) Confirm Administered Dose 40 unit in 100 mls @ as directed .ROUTE .STK-MED ONE Stop: 07/02/25 04:09 Vasopressin (Vasostrict) 40 unit in 100 mls @ 0 mls/hr IV .Q0M [facility]; Protocol Last Admin: 07/02/25 14:14 Dose: 0.1 unit/min, 15 mls/hr Lidocaine HCl (Xylocaine) Confirm Administered Dose 20 mls @ as directed .ROUTE .STK-MED ONE Stop: 07/02/25 05:08 Dextrose (D10w) 125 mls @ 750 mls/hr IV ONCE PRN PRN Reason: HYPOGLYCEMIA Sodium Bicarbonate 25 meq/ (Dextrose) 1,025 mls @ 0 mls/hr IV .Q0M ONE Stop: 07/02/25 07:46 Last Admin: 07/02/25 07:46 Dose: 1 mls/hr Albumin Human (Albumin) 25 g in 100 mls @ 60 mls/hr IV Q8H [facility] Last Infusion: 07/02/25 11:34 Dose: Infused Epinephrine HCl 5 mg/ Sodium (Chloride) 505 mls @ 0 mls/hr IV .Q0M [facility]; Protocol Last Admin: 07/02/25 10:36 Dose: 14 mcg/min, 84.84 mls/hr Midazolam HCl (Versed) 100 mg in 100 mls @ 0 mls/hr IV .Q0M JAY; Protocol Last Titration: 07/02/25 12:32 Dose: 2 mg/hr, 2 mls/hr Midazolam HCl (Versed) Confirm Administered Dose 100 mg in 100 mls @ as directed .ROUTE .STK-MED ONE Stop: 07/02/25 12:17 Last Admin: 07/02/25 12:34 Dose: Not Given Insulin Human Regular (Insulin Regular-Human 100 Units/1 Ml) 10 unit IVP ONCE ONE Stop: 07/01/25 17:45 Last Admin: 07/01/25 19:44 Dose: 10 unit Insulin Human Regular (Insulin Regular-Human 100 Units/1 Ml) Confirm Administered Dose 5 unit .ROUTE .STK-MED ONE Stop: 07/02/25 04:06 Insulin Human Regular (Insulin Regular-Human 100 Units/1 Ml) 5 unit IVP ONCE ONE Stop: 07/02/25 04:09 Last Admin: 07/02/25 04:08 Dose: 5 unit Insulin Human Regular (Insulin Regular-Human 100 Units/1 Ml) 5 unit IVP ONCE ONE Stop: 07/02/25 06:01 Last Admin: 07/02/25 04:08 Dose: 5 unit Iohexol (Iohexol 350 Mg/Ml 500 Ml Btl (Per Ml)) 0 ml IV ONCE ONE Stop: 07/01/25 20:32 Last Admin: 07/01/25 20:32 Dose: 100 ml Lanolin (Lanolin Oint 7 Gm) 1 applic TOPICAL PRN PRN PRN Reason: DRYNESS Last Admin: 07/02/25 00:07 Dose: 1 applic Meropenem (Meropenem 500 Mg Sdv) 500 mg IVP Q8H JAY; Protocol Last Admin: 07/02/25 07:13 Dose: Not Given Meropenem (Meropenem 500 Mg Sdv) 500 mg IVP Q8H JAY; Protocol Midazolam HCl (Midazolam 1 Mg/Ml Inj 2 Ml) Confirm Administered Dose 2 mg .ROUTE .STK-MED ONE Stop: 07/02/25 12:09 Midazolam HCl (Midazolam 1 Mg/Ml Inj 2 Ml) 2 mg IVP ONCE ONE Stop: 07/02/25 12:11 Last Admin: 07/02/25 12:12 Dose: 2 mg Morphine Sulfate (Morphine 4 Mg/Ml Sdv 1 Ml) 1 mg IVP Q4H PRN PRN Reason: SEVERE PAIN Naloxone HCl (Naloxone 0.4 Mg/Ml Sdv) 0.1 mg IVP Q2M PRN PRN Reason: OPIATERV Ondansetron HCl (Ondansetron 2 Mg/Ml Sdv 2 Ml) 4 mg IVP Q8H PRN PRN Reason: vomiting, or N/V if npo Pantoprazole Sodium (Pantoprazole 40 Mg Sdv) 40 mg IVP Q24H JAY Last Admin: 07/01/25 21:52 Dose: 40 mg Rocuronium [place] (Rocuronium 10 Mg/Ml Inj 5ml) Confirm Administered Dose 100 mg .ROUTE .STK-MED ONE Stop: 07/02/25 02:19 Rocuronium [place] (Rocuronium 10 Mg/Ml Inj 5ml) 100 mg IVP ONCE ONE Stop: 07/02/25 02:34 Last Admin: 07/02/25 02:33 Dose: 100 mg Sodium Bicarbonate (Sodium Bicarbonate 8.4% 1 Meq/Ml 50ml Syr) Confirm Administered Dose 50 meq .ROUTE .STK-MED ONE Stop: 07/02/25 03:19 Sodium Bicarbonate (Sodium Bicarbonate 8.4% 1 Meq/Ml 50ml Syr) Confirm Administered Dose 100 meq .ROUTE .STK-MED ONE Stop: 07/02/25 03:21 Sodium Bicarbonate (Sodium Bicarbonate 8.4% 1 Meq/Ml 50ml Syr) 50 meq IVP ONCE ONE Stop: 07/02/25 03:21 Last Admin: 07/02/25 03:20 Dose: 50 meq Sodium Bicarbonate (Sodium Bicarbonate 8.4% 1 Meq/Ml 50ml Syr) 50 meq IVP ONCE ONE Stop: 07/02/25 03:24 Last Admin: 07/02/25 03:23 Dose: 50 meq Allergies Penicillins Allergy (Verified 07/01/25 15:11) ALGY-Hives Home Medications aspirin 81 mg tablet,delayed release 81 mg PO DAILY 07/01/25 [History Confirmed 07/01/25] cyanocobalamin (vitamin B-12) 1,000 mcg tablet (Vitamin B-12) 1,000 mcg PO DAILY 07/01/25 [History Confirmed 07/01/25] elderberry fruit 350 mg capsule 350 mg PO DAILY 07/01/25 [History Confirmed 07/01/25] guaifenesin 600 mg tablet, extended release 12 hr (Mucinex) 600 mg PO DAILY 07/01/25 [History Confirmed 07/01/25] magnesium 250 mg tablet 250 mg PO DAILY 07/01/25 [History Confirmed 07/01/25] multivitamin 1 tab PO DAILY 07/01/25 [History Confirmed 07/01/25] sour ag extract 1,000 mg capsule (Tart Ag Extract) 1,000 mg PO DAILY 07/01/25 [History Confirmed 07/01/25] turmeric root extract 500 mg capsule 500 mg PO DAILY 07/01/25 [History Confirmed 07/01/25] Discharge Plan Discharge Patient Disposition: Xfer Short-Term Hosp Condition: Stable Prescriptions: No Action multivitamin [Men's Multi-Vitamin] Tablet 1 tab PO DAILY cyanocobalamin (vitamin B-12) [Vitamin B-12] 1,000 mcg Tablet 1,000 mcg PO DAILY aspirin [Aspir-81] 81 mg Tablet,Delayed Release (Dr/Ec) 81 mg PO DAILY magnesium 250 mg Tablet 250 mg PO DAILY turmeric root extract 500 mg Capsule 500 mg PO DAILY guaifenesin [Mucinex] 600 mg Tablet Extended Release 12hr 600 mg PO DAILY Tart Ag Extract 1,000 mg Capsule 1,000 mg PO DAILY elderberry fruit 350 mg Capsule 350 mg PO DAILY Patient Instructions: Opioid Safety, Patient Portal & Eleni Instructions Transfer Attestations Time Spent in Transfer Care: greater than 30 min Quality Metrics Clinical Quality Measures [ No reported AMI, CVA or VTE this stay] Coding Level of Care Code Acute Code for g Fwd Diagnoses Acute hypoxic respiratory failure J96.01 Acute systolic CHF (congestive heart failure) I50.21 Cardiogenic shock R57.0 Severe aortic stenosis I35.0
== END 2025-07-02 15:00 | disposition short-term general hospital (02) | DRG 853 ==
LOC: ER 18:29 → ICU 18:39
PROVIDERS: Internal Medicine; Student in an Organized Health Care Education/Training Program; Admitting Provider Family Medicine; Emergency Provider Emergency Medicine; Visit Provider Family Medicine
PROC: 02HW3RZ Insertion of Short-term External Heart Assist System into Thoracic Aorta, Descending, Percutaneous Approach (ICD-10-PCS; principal; 2025-07-02 05:00)
DX: A41.9 Sepsis, unspecified organism (principal); D65 Disseminated intravascular coagulation [defibrination syndrome]; I21.4 Non-ST elevation (NSTEMI) myocardial infarction; R57.0 Cardiogenic shock; J96.01 Acute respiratory failure with hypoxia; I50.21 Acute systolic (congestive) heart failure; K72.00 Acute and subacute hepatic failure without coma; R65.21 Severe sepsis with septic shock; N17.9 Acute kidney failure, unspecified; N39.0 Urinary tract infection, site not specified; E87.20 Acidosis, unspecified; I48.19 Other persistent atrial fibrillation; I35.0 Nonrheumatic aortic (valve) stenosis; I25.10 Atherosclerotic heart disease of native coronary artery without angina pectoris; F17.210 Nicotine dependence, cigarettes, uncomplicated; E87.5 Hyperkalemia; Z88.0 Allergy status to penicillin
CPT/HCPCS: 33990; 36415; 36416; 36592; 51702; 71045; 71275; 76700; 80051; 80053; 80061; 80074; 80306; 81001; 82330; 82805; 82962; 82977; 83036; 83605; 83690; 83735; 83880; 84100; 84145; 84443; 84484; 85025; 85347; 85362; 85378; 85384; 85610; 85730; 86140; 87040; 87070; 87205; 87522; 87806; 93005; 93308; 93458; 94002; 94799; 96365; 96366; 96367; 96375; 99291; C1769; C1887; C1894; J0169; J0282; J0283; J0612; J1160; J1250; J1644; J1815; J1938; J2185; J2250; J2470; J2598; J3010; J3372; J3490; J7030; J7040; J7050; J7070; J7799; J9999; P9046; Q9967